=== PATIENT | female | born 1950 | race Caucasian/White ===

== ENCOUNTER 2023-10-27 10:52 | Outpatient (OUT) | payer MEDICARE, OTHER, SELFPAY ==
--- NOTE | 2023-10-27 10:55 | MM_ITS ---
Patient Name: ANASTACIA TOMLIN MR#: [id number] : 1950 Exam Date: 10/27/2023 Ordering Doctor: DR CALI YOUNGBLOOD RADIOLOGY REPORT PROCEDURE: MM TOMOSYNTHESIS SCREENING BI COMPARISON: MG MAMM SCREEN 3D THIERRY CAD, 10/07/2021. MG MAMM SCREEN 3D THIERRY CAD, 10/24/2022. INDICATIONS: screening Calculator Name NCI Breast Cancer Risk Assessment Tool 5 Year Breast Cancer Risk 1.70% Lifetime Breast Cancer Risk 4.00% Personal Breast Cancer No Personal Ovarian Cancer No Treatments None Family Cancers None LOCATION: [facility] BREAST COMPOSITION: Scattered areas fibroglandular density. FINDINGS: DIAGNOSTIC CATEGORY 2--BENIGN FINDING. NO CHANGE FROM COMPARISON. Scattered benign-appearing nodules are present. Scattered benign-appearing calcifications are present. Scattered benign-appearing lymph nodes are present. Pacemaker obscures the left axillary tail RIGHT BREAST: No significant suspicious finding. LEFT BREAST: No significant suspicious finding. RECOMMENDATIONS: ROUTINE MAMMOGRAM AND CLINICAL EVALUATION IN 12 MONTHS. PLEASE NOTE: A NORMAL MAMMOGRAM DOES NOT EXCLUDE THE POSSIBILITY OF BREAST CANCER. A CLINICALLY SUSPICIOUS PALPABLE LUMP SHOULD BE BIOPSIED. Dictated by: Nixon Orellana MD on 10/27/2023 at 12:47 Approved by: Nixon Orellana MD on 10/27/2023 at 12:48
== END 2023-10-27 10:53 | disposition home or self-care (01) ==
LOC: MAMMO 10:52
PROVIDERS: PCP Nurse Practitioner Family; Visit Provider Nurse Practitioner Family
DX: Z12.31 Encounter for screening mammogram for malignant neoplasm of breast (principal)
CPT/HCPCS: 77063; 77067

== ENCOUNTER 2024-06-07 17:23 | Emergency (ER) | payer MEDICARE, SELFPAY ==
[2024-06-07 17:38] VITALS: BP 144/70; PULSE 75; TEMP 36.6; O2SAT 100; BMI 32.3
[2024-06-07 18:44] VITALS: BP 134/105; PULSE 86; O2SAT 98
--- NOTE | 2024-06-07 19:01 | ED.BACK1 ---
Documented by User: Jordy Cool MD 06/07/24 19:03 HPI HPI - Back Pain/Injury General Chief Complaint: Back Pain/Injury Stated Complaint: BACK PAIN Time Seen by Provider: 06/07/24 18:49 Source: patient and family Mode of arrival: walk-in Limitations: no limitations History of Present Illness HPI Narrative: This is a 74 female here with her from [facility] here complaining of increasing bruising from her abdominal area over her right iliac crest in her back area. She currently does take blood thinners for valvular heart surgery and atrial fibrillation and was told she will be on blood thinners the rest of her life. Several days ago she had a fall onto concrete steps. She went to a local emergency room in [facility] where plain imaging was done and she is told there is no broken bones. She did not have any CT imaging at that time. She says that she feels increasingly weak and fatigued and has this massive amount of ecchymosis and bruising throughout her entire right flank and back area. She does not have paresis paresthesias tingling or numbness of the lower extremities there is not been any new problems or injury. She is here with her is very pleasant. Her vital signs are noted. Related Data Home Medications ?Medication ?Instructions ?Recorded ?Confirmed apixaban 5 mg tablet (Eliquis) 5 mg PO BID 06/07/24 06/07/24 atorvastatin 40 mg tablet 40 mg PO DAILY 06/07/24 06/07/24 bupropion HCl 150 mg tablet,12 hr 150 mg PO BID 06/07/24 06/07/24 sustained-release duloxetine 60 mg capsule,delayed 60 mg PO DAILY 06/07/24 06/07/24 release furosemide 40 mg tablet 40 mg PO DAILY 06/07/24 06/07/24 metformin 500 mg tablet 500 mg PO DAILY 06/07/24 06/07/24 omeprazole 20 mg capsule,delayed 20 mg PO DAILY 06/07/24 06/07/24 release sotalol 80 mg tablet 80 mg PO BID 06/07/24 06/07/24 Allergies Allergy/AdvReac Type Severity Reaction Status Date / Time bee venom protein (honey bee) Allergy Severe Hives Verified 06/07/24 17:38 Penicillins Allergy Severe Hives Verified 06/07/24 17:38 Opioid HPI Opioid Management Most Recent Opioid Data: No Data to Display [facility] Social History Little interest or pleasure in doing things: not at all Feeling down, depressed, or hopeless: not at all Exam Constitutional Vital Signs, click to edit/add: Last Vital Signs Temp 98.4 F 06/07/24 22:33 Pulse 79 06/07/24 22:33 Resp 18 06/07/24 22:33 BP 115/78 06/07/24 22:33 Pulse Ox 97 06/07/24 22:33 O2 Del Method Room Air 06/07/24 17:38 Course Vital Signs Vital signs: Vital Signs Temperature 98 F 06/07/24 17:38 Pulse Rate 75 06/07/24 17:38 Respiratory Rate 20 06/07/24 17:38 Blood Pressure 144/70 H 06/07/24 17:38 Pulse Oximetry 100 06/07/24 17:38 Oxygen Delivery Method Room Air 06/07/24 17:38 Temperature 98.4 F 06/07/24 22:33 Pulse Rate 79 06/07/24 22:33 Respiratory Rate 18 06/07/24 22:33 Blood Pressure 115/78 06/07/24 22:33 Pulse Oximetry 97 06/07/24 22:33 Oxygen Delivery Method Room Air 06/07/24 17:38 MDM - Back Pain/Injury Lab Data Labs: Lab Results 06/07/24 Range/Units 19:10 WBC 5.0 (4.0-11.0) 10^3/uL RBC 2.60 L (4.20-5.40) 10^6/uL Hgb 7.6 L (12.0-16.0) g/dL Hct 24.2 L (36.0-48.0) % MCV 93.1 (81.0-99.0) fL MCH 29.2 (26.7-34.0) pg MCHC 31.4 (29.9-35.2) g/dL RDW 14.7 (11.0-15.0) % Plt Count 144 L (150-450) 10^3/uL MPV 9.8 (9.5-13.5) fL Neut % (Auto) 63.4 (43.0-75.0) % Lymph % (Auto) 21.2 (20.5-60.0) % [place] % (Auto) 11.2 (1.7-12.0) % Eos % (Auto) 3.0 (0.9-7.0) % Baso % (Auto) 0.8 (0.2-2.0) % Neut # (Auto) 3.2 (1.4-6.5) 10^3/uL Lymph # (Auto) 1.1 L (1.2-3.8) 10^3/uL [place] # (Auto) 0.6 (0.3-0.8) 10^3/uL Eos # (Auto) 0.2 (0.0-0.7) 10^3/uL Baso # (Auto) 0.0 (0.0-0.1) 10^3/uL Abs Immat Gran (auto) 0.02 (0.00-0.03) 10^3/uL Imm/Tot Granulo (auto) 0.4 (0.0-0.5) % Sodium 141 (136-145) mmol/L Potassium 3.9 (3.5-5.1) mmol/L Chloride 102 (98-107) mmol/L Carbon Dioxide 31.2 (21.0-32.0) mmol/L Anion Gap 11.7 BUN 20.0 H (7.0-18.0) mg/dL Creatinine 0.73 (0.55-1.02) mg/dL Est GFR ( Amer) >60 (>=60 mL/min/1.73m^2) Est GFR (Non-Af Amer) >60 (>=60 mL/min/1.73m^2) BUN/Creatinine Ratio 27.4 Glucose 145 H (74-106) mg/dL Calcium 9.0 (8.5-10.1) mg/dL Total Bilirubin 1.7 H (0.2-1.0) mg/dL AST 25 (15-37) U/L ALT 27 (14-59) U/L Alkaline Phosphatase 60 (46-116) U/L Total Protein 6.4 (6.4-8.2) g/dL Albumin 3.0 L (3.4-5.0) g/dL Globulin 3.4 g/dL Albumin/Globulin Ratio 0.9 Discharge Plan Discharge Chief Complaint: Back Pain/Injury Clinical Impression: Lumbar transverse process fracture, Anemia, Hematoma of right flank Patient Disposition: Home, Self-Care Prescriptions / Home Meds: No Action Eliquis 5 mg tablet 5 mg PO BID atorvastatin 40 mg tablet 40 mg PO DAILY bupropion HCl 150 mg tablet sustained-release 12 hr 150 mg PO BID duloxetine 60 mg capsule,delayed release(DR/EC) 60 mg PO DAILY furosemide 40 mg tablet 40 mg PO DAILY metformin 500 mg tablet 500 mg PO DAILY omeprazole 20 mg capsule,delayed release(DR/EC) 20 mg PO DAILY sotalol 80 mg tablet 80 mg PO BID Print Language: Belgian Instructions: Anemia (ED), Hematoma (ED), Transverse Process Fracture (ED) Additional Instructions: have your blood count recheck tomorrow as discussed Referrals: DAVID STEWART [Primary Care Provider] - 1 week Discharge Date/Time: 06/07/24 22:45 Documented by User: Hay Duval MD 06/08/24 20:54 HPI HPI - Back Pain/Injury General Chief Complaint: Back Pain/Injury Stated Complaint: BACK PAIN Time Seen by Provider: 06/07/24 18:49 Related Data Home Medications ?Medication ?Instructions ?Recorded ?Confirmed apixaban 5 mg tablet (Eliquis) 5 mg PO BID 06/07/24 06/07/24 atorvastatin 40 mg tablet 40 mg PO DAILY 06/07/24 06/07/24 bupropion HCl 150 mg tablet,12 hr 150 mg PO BID 06/07/24 06/07/24 sustained-release duloxetine 60 mg capsule,delayed 60 mg PO DAILY 06/07/24 06/07/24 release furosemide 40 mg tablet 40 mg PO DAILY 06/07/24 06/07/24 metformin 500 mg tablet 500 mg PO DAILY 06/07/24 06/07/24 omeprazole 20 mg capsule,delayed 20 mg PO DAILY 06/07/24 06/07/24 release sotalol 80 mg tablet 80 mg PO BID 06/07/24 06/07/24 Allergies Allergy/AdvReac Type Severity Reaction Status Date / Time bee venom protein (honey bee) Allergy Severe Hives Verified 06/07/24 17:38 Penicillins Allergy Severe Hives Verified 06/07/24 17:38 Opioid HPI Opioid Management Most Recent Opioid Data: No Data to Display PFSH PFSH Social History Little interest or pleasure in doing things: not at all Feeling down, depressed, or hopeless: not at all Exam Constitutional Vital Signs, click to edit/add: Last Vital Signs Temp 98.4 F 06/07/24 22:33 Pulse 79 06/07/24 22:33 Resp 18 06/07/24 22:33 BP 115/78 06/07/24 22:33 Pulse Ox 97 06/07/24 22:33 O2 Del Method Room Air 06/07/24 17:38 Course Vital Signs Vital signs: Vital Signs Temperature 98 F 06/07/24 17:38 Pulse Rate 75 06/07/24 17:38 Respiratory Rate 20 06/07/24 17:38 Blood Pressure 144/70 H 06/07/24 17:38 Pulse Oximetry 100 06/07/24 17:38 Oxygen Delivery Method Room Air 06/07/24 17:38 Temperature 98.4 F 06/07/24 22:33 Pulse Rate 79 06/07/24 22:33 Respiratory Rate 18 06/07/24 22:33 Blood Pressure 115/78 06/07/24 22:33 Pulse Oximetry 97 06/07/24 22:33 Oxygen Delivery Method Room Air 06/07/24 17:38 MDM - Back Pain/Injury MDM Narrative Medical decision making narrative: care transferred at change of shift. Patient fell 06/01/24 striking her back. Developed immediate right flank hematoma. Next day seen at local ER and reported xrays as neg and was discharged home. Presented here due to continued pain. Diagnostic studies ordered at change of shift. CT returned with findings of transverse process lumbar fractures and large hematoma. 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 Discussed with weatherization operations manager Surgeon Dr Herrera and he agrees that since this injury occurred last week she is probably not actively bleeding. Patient informed of the plan of close followup and to have her CBC rechecked tomorrow. She can continue her Eliquis for A. Fib for now both patient and her acknowledged understanding of the plan Lab Data Labs: Lab Results 06/07/24 Range/Units 19:10 WBC 5.0 (4.0-11.0) 10^3/uL RBC 2.60 L (4.20-5.40) 10^6/uL Hgb 7.6 L (12.0-16.0) g/dL Hct 24.2 L (36.0-48.0) % MCV 93.1 (81.0-99.0) fL MCH 29.2 (26.7-34.0) pg MCHC 31.4 (29.9-35.2) g/dL RDW 14.7 (11.0-15.0) % Plt Count 144 L (150-450) 10^3/uL MPV 9.8 (9.5-13.5) fL Neut % (Auto) 63.4 (43.0-75.0) % Lymph % (Auto) 21.2 (20.5-60.0) % [place] % (Auto) 11.2 (1.7-12.0) % Eos % (Auto) 3.0 (0.9-7.0) % Baso % (Auto) 0.8 (0.2-2.0) % Neut # (Auto) 3.2 (1.4-6.5) 10^3/uL Lymph # (Auto) 1.1 L (1.2-3.8) 10^3/uL [place] # (Auto) 0.6 (0.3-0.8) 10^3/uL Eos # (Auto) 0.2 (0.0-0.7) 10^3/uL Baso # (Auto) 0.0 (0.0-0.1) 10^3/uL Abs Immat Gran (auto) 0.02 (0.00-0.03) 10^3/uL Imm/Tot Granulo (auto) 0.4 (0.0-0.5) % Sodium 141 (136-145) mmol/L Potassium 3.9 (3.5-5.1) mmol/L Chloride 102 (98-107) mmol/L Carbon Dioxide 31.2 (21.0-32.0) mmol/L Anion Gap 11.7 BUN 20.0 H (7.0-18.0) mg/dL Creatinine 0.73 (0.55-1.02) mg/dL Est GFR ( Amer) >60 (>=60 mL/min/1.73m^2) Est GFR (Non-Af Amer) >60 (>=60 mL/min/1.73m^2) BUN/Creatinine Ratio 27.4 Glucose 145 H (74-106) mg/dL Calcium 9.0 (8.5-10.1) mg/dL Total Bilirubin 1.7 H (0.2-1.0) mg/dL AST 25 (15-37) U/L ALT 27 (14-59) U/L Alkaline Phosphatase 60 (46-116) U/L Total Protein 6.4 (6.4-8.2) g/dL Albumin 3.0 L (3.4-5.0) g/dL Globulin 3.4 g/dL Albumin/Globulin Ratio 0.9 Discharge Plan Discharge Chief Complaint: Back Pain/Injury Clinical Impression: Lumbar transverse process fracture, Anemia, Hematoma of right flank Patient Disposition: Home, Self-Care Prescriptions / Home Meds: No Action Eliquis 5 mg tablet 5 mg PO BID atorvastatin 40 mg tablet 40 mg PO DAILY bupropion HCl 150 mg tablet sustained-release 12 hr 150 mg PO BID duloxetine 60 mg capsule,delayed release(DR/EC) 60 mg PO DAILY furosemide 40 mg tablet 40 mg PO DAILY metformin 500 mg tablet 500 mg PO DAILY omeprazole 20 mg capsule,delayed release(DR/EC) 20 mg PO DAILY sotalol 80 mg tablet 80 mg PO BID Print Language: Belgian Instructions: Anemia (ED), Hematoma (ED), Transverse Process Fracture (ED) Additional Instructions: have your blood count recheck tomorrow as discussed Referrals: DAVID STEWART [Primary Care Provider] - 1 week Discharge Date/Time: 06/07/24 22:45
--- NOTE | 2024-06-07 19:02 | CT_ITS ---
The [address] [address] Patient Name: ANASTACIA TOMLIN MRN: [id number] date: 1950 Sex: F Assigned Patient Location: ER Current Patient Location: ER Accession/Order Number: [id number] Exam Date: 06/07/2024 19:41 Report Date: 06/07/2024 21:39 At the request of: VIOLETA COLORADO Procedure: CT abdomen pelvis w con Indication: Fall with large hematoma in right flank. Comparison: CT chest of 02/18/2016 was reviewed Procedure: Axial images were made from the diaphragms through the symphysis pubis. No oral contrast was given prior to scanning. 100 mL Omnipaque 300 Intravenous contrast was given. Dose reduction techniques were achieved by using automated exposure control and/or adjustment of mA and/or kV according to patient size and/or use of iterative reconstruction technique. Findings: Liver/Biliary System: No liver injuries are seen. No liver masses . No intra or extrahepatic biliary dilatation. No gallstones or cholecystitis. Pancreas/Spleen: No splenic or pancreatic injuries. No acute pancreatitis. Pancreatic duct is not dilated. No splenomegaly or splenic lesions. Kidneys/Adrenals: Normal symmetrical nephrograms. No renal injuries are seen. No renal or ureteral stones are seen. No hydronephrosis or hydroureter bilaterally. No renal masses. No adrenal nodules. Aorta/Vessels: No vascular injuries. No evidence of aortic aneurysm. Patent IVC, hepatic veins, renal veins and portal venous system. Bowel/Fluid/Nodes: No bowel injuries. No bowel dilatation or bowel wall thickening. No evidence of bowel obstruction. Small anterior abdominal wall hernia containing small bowel loop. Colonic diverticulosis with no evidence of diverticulitis. No intra-abdominal hematomas. No ascites or fluid collections. No adenopathy. Lung bases: Stable 3 mm pleural-based nodule right middle lobe of the lung, probably benign. No acute consolidation. No pleural effusions. Other findings: Partially visualized subcutaneous hematoma in right flank is seen measuring about 7.0 x 4.3 x 6.2 cm. No fractures are seen. No aggressive osseous lesions are seen. Pelvis: No pelvic masses or adenopathy. No free fluid seen in the pelvis. Bladder, uterus and adnexa are unremarkable. Other Findings: No fractures are seen. No aggressive osseous lesions are seen. CT/CT abdomen pelvis w con Impression: 1. Partially visualized subcutaneous hematoma in right flank measuring about 7.0 x 4.3 x 6.2 cm. Follow-up is recommended. 2. No organ injuries are seen in abdomen or pelvis. No fractures are seen. 3. Small anterior abdominal wall hernia containing small bowel loop. No bowel obstruction. Colonic diverticulosis with no evidence of diverticulitis. Electronically authenticated by: JACKIE CASTELLANOS Date: 06/07/2024 21:39
--- NOTE | 2024-06-07 19:03 | CT_ITS ---
The [address] [address] Patient Name: ANASTACIA TOMLIN MRN: [id number] date: 1950 Sex: F Assigned Patient Location: ER Current Patient Location: ER Accession/Order Number: [id number] Exam Date: 06/07/2024 19:41 Report Date: 06/07/2024 21:50 At the request of: VIOLETA COLORADO Procedure: CT lumbar spine wo con CT LUMBAR SPINE WITHOUT CONTRAST. HISTORY: Trauma COMPARISON: None. TECHNIQUE: CT of the lumbar spine without contrast. Sagittal and coronal reformatted images created. FINDINGS: BONY ALIGNMENT: There is normal lumbar lordosis. No spondylolisthesis. VERTEBRAL BODY: No acute fracture of the lumbar vertebral bodies. There are minimally displaced fractures of the right L2-L4 transverse processes. Intervertebral disc spaces are intact. CENTRAL CANAL/NEURAL FORAMINA: No high-grade central canal or neuroforaminal stenosis. SOFT TISSUE: No mass or inflammation. VISUALIZED ABDOMEN/PELVIS: No acute findings. CT/CT lumbar spine wo con IMPRESSION: 1. Acute appearing minimally displaced fractures of the right L2-L4 transverse processes. Correlate clinically. 2. No acute fracture of the lumbar vertebral bodies. Electronically authenticated by: REGINALD ESTRADA Date: 06/07/2024 21:50
--- NOTE | 2024-06-07 19:04 | CT_ITS ---
The [address] [address] Patient Name: ANASTACIA TOMLIN MRN: [id number] date: 1950 Sex: F Assigned Patient Location: ER Current Patient Location: ER Accession/Order Number: [id number] Exam Date: 06/07/2024 19:41 Report Date: 06/07/2024 21:50 At the request of: VIOLETA COLORADO Procedure: CT hip RT wo con EXAM: CT hip RT wo con HISTORY: The patient is a 74-year-old female, Trauma COMPARISON: None. TECHNIQUE: CT images were obtained through the right hip only without intravenous contrast and reformatted in 2 dimensions. Dose reduction techniques were achieved by using automated exposure control and/or adjustment of mA and/or kV according to patient size and/or use of iterative reconstruction technique. FINDINGS: The bone images demonstrate no fractures or cortical discontinuities of the proximal right femur and acetabulum. There is moderate osteoarthritic cartilage loss throughout the right hip joint. No osteophytes or other secondary findings of osteoarthritis are seen. The soft tissue images demonstrate no evidence of abnormal fluid collections within or around the right hip on this non-contrast enhanced study. CT/CT hip RT wo con IMPRESSION: 1. No fracture dislocation of the right hip. 2. Osteoarthritis of the right hip. Electronically authenticated by: CANDE PATEL Date: 06/07/2024 21:50
[2024-06-07 19:17] LABS: Basophils Percent Auto 0.8 % (0.2-2.0); Eosinophils Absolute Auto 0.2 10^3/uL (0.0-0.7); Hematocrit 24.2 % (36.0-48.0); Hemoglobin 7.6 g/dL (12.0-16.0); Immature Granulocytes Abs Auto 0.02 10^3/uL (0.00-0.03); Immature Granulocytes Pct Auto 0.4 % (0.0-0.5); Lymphocytes Absolute Auto 1.1 10^3/uL (1.2-3.8); Lymphocytes Percent Auto 21.2 % (20.5-60.0); Mean Corpuscular HGB Conc 31.4 g/dL (29.9-35.2); Mean Corpuscular Hemoglobin 29.2 pg (26.7-34.0); Mean Corpuscular Volume 93.1 fL (81.0-99.0); Mean Platelet Volume 9.8 fL (9.5-13.5); Monocytes Absolute Auto 0.6 10^3/uL (0.3-0.8); Monocytes Percent Auto 11.2 % (1.7-12.0); Neutrophils Absolute Auto 3.2 10^3/uL (1.4-6.5); Neutrophils Percent Auto 63.4 % (43.0-75.0); Platelet Count 144 10^3/uL (150-450); Red Cell Distribution Width 14.7 % (11.0-15.0)
[2024-06-07 19:32] LABS: Alanine Aminotransferase 27 U/L (14-59); Albumin Globulin Ratio 0.9; Alkaline Phosphatase 60 U/L (46-116); Anion Gap 11.7; Aspartate Amino Transferase 25 U/L (15-37); BUN Creatinine Ratio 27.4; Bilirubin Total 1.7 mg/dL (0.2-1.0); Carbon Dioxide 31.2 mmol/L (21.0-32.0); Chloride 102 mmol/L (98-107); Estimated GFR (African America >60 (>=60 mL/min/1.73m^2); Estimated GFR (Non-African Ame >60 (>=60 mL/min/1.73m^2); Globulin 3.4 g/dL; Glucose 145 mg/dL (74-106); Potassium 3.9 mmol/L (3.5-5.1); Sodium 141 mmol/L (136-145); Total Protein 6.4 g/dL (6.4-8.2)
[2024-06-07 20:25] VITALS: BP 120/70; PULSE 87; O2SAT 98
[2024-06-07 21:34] VITALS: BP 125/85; PULSE 92; O2SAT 96
[2024-06-07 22:33] VITALS: BP 115/78; PULSE 79; TEMP 36.9; O2SAT 97
== END 2024-06-07 22:45 | disposition home or self-care (01) ==
PROVIDERS: Emergency Medicine Emergency Medical Services; Emergency Provider Internal Medicine; PCP Nurse Practitioner
DX: S32.029A Unspecified fracture of second lumbar vertebra, initial encounter for closed fracture (principal); S32.039A Unspecified fracture of third lumbar vertebra, initial encounter for closed fracture; S32.049A Unspecified fracture of fourth lumbar vertebra, initial encounter for closed fracture; S30.1XXA Contusion of abdominal wall, initial encounter; D64.9 Anemia, unspecified; W19.XXXA Unspecified fall, initial encounter; I48.91 Unspecified atrial fibrillation; Z79.01 Long term (current) use of anticoagulants
CPT/HCPCS: 36415; 72131; 73700; 74177; 80053; 85025; 99285; Q9967

== ENCOUNTER 2024-10-27 11:28 | Outpatient (OUT) | payer MEDICARE, SELFPAY ==
--- NOTE | 2024-10-27 11:30 | MM_ITS ---
Patient Name: ANASTACIA TOMLIN MR#: [id number] : 1950 Exam Date: 10/27/2024 Ordering Doctor: DAVID STEWART RADIOLOGY REPORT PROCEDURE: MM TOMOSYNTHESIS SCREENING BI COMPARISON: MM TOMOSYNTHESIS SCREENING BI, 10/27/2023. MG MAMM SCREEN 3D THIERRY CAD, 10/24/2022. MG MAMM SCREEN 3D THIERRY CAD, 10/07/2021. MG MAMM THIERRY SCRN W CAD DIG, 12/26/2014. INDICATIONS: Screening Calculator Name NCI Breast Cancer Risk Assessment Tool 5 Year Breast Cancer Risk 1.70% Lifetime Breast Cancer Risk 3.80% Personal Breast Cancer No Personal Ovarian Cancer No Treatments None Family Cancers None LOCATION: [facility] BREAST COMPOSITION: There are scattered areas of fibroglandular density. FINDINGS: DIAGNOSTIC CATEGORY 1--NEGATIVE. RIGHT BREAST: No significant suspicious finding. LEFT BREAST: No significant suspicious finding. RECOMMENDATIONS: ROUTINE MAMMOGRAM AND CLINICAL EVALUATION IN 12 MONTHS. PLEASE NOTE: A NORMAL MAMMOGRAM DOES NOT EXCLUDE THE POSSIBILITY OF BREAST CANCER. A CLINICALLY SUSPICIOUS PALPABLE LUMP SHOULD BE BIOPSIED. Dictated by: Irvin Jenkins DO on 10/27/2024 at 16:31 Approved by: Irvin Jenkins DO on 10/27/2024 at 16:33
--- OUTSIDE RECORDS SUMMARY | 2024-10-27 11:34 | XMS_ITS | CCD ---
Author Organization [facility] CliniSypr Care Team Providers Care Sports Statistician Name Role Phone RYLIE, DR CALI Dudley Admitting Unavailable KUNS, DR CALI Dudley Attending Unavailable ZIEBER, DR YASMIN Dudley Consulting Unavailable KUNS, DR CALI Dudley Consulting Unavailable RUSHER, BOB Watkins Attending Unavailable RUSHER, BOB Watkins Attending Unavailable RUSHER, BOB Watkins Attending Unavailable RUSHER, BOB Watkins Attending Unavailable RUSHER, BOB Watkins Attending Unavailable RUSHER, BOB Watkins Attending Unavailable RUSHER, BOB Watkins Referring Unavailable KUNJune, CALI GIRON Attending Unavailable CHRISSY ENNIS Referring Unavailable KUNS, CALI GIRON Primary Care Unavailable KAREN LU Attending Unavailable CALI YOUNGBLOOD Referring Unavailable KUNS, LEWIS Primary Care Unavailable DAVID HAYES Attending Unavailable CALI YOUNGBLOOD Referring Unavailable HAYES, DAVID Ulloa Primary Care Unavailable DAVID HAYES Attending Unavailable CALI YOUNGBLOOD Referring Unavailable HAYESDAVID ROBERSON Primary Care Unavailable CHRISSY ENNIS Referring Unavailable HAYES, DAVID Ulloa Primary Care Unavailable HAYESDAVID ROBERSON Attending Unavailable HAYESDAVID ROBERSON Attending Unavailable HAYESDAVID ROBERSON Referring Unavailable HAYESDAVID Primary Care Unavailable DEVIKA VALDIVIA Attending Unavailable CHRISSY ENNIS Referring Unavailable HAYESDAVID Primary Care Unavailable HAYESDAVID ROBERSON Attending Unavailable HAYESDAVID ROBERSON Referring Unavailable HAYESDAVID Primary Care Unavailable KUNS, CALI R Referring Unavailable KUNS, CALI R Primary Care Unavailable LISBET RYAN Admitting Unavailable LISBET RYAN Attending Unavailable CHRISSY ENNIS Primary Care Unavailable MADYSON NICKERSON Referring Unavailable KUNS, CALI R Primary Care Unavailable ERNA SKY Attending Unavailab le CHRISSY ENNIS Referring Unavailable KUNS, CALI R Primary Care Unavailable HAYESDAVID Referring Unavailable DAVID HAYES Primary Care Unavailable DAVID HAYES Referring Unavailable HAYESDAVID ROBERSON Primary Care Unavailable FARRAH LAND Attending Unavailable LUBA JUÁREZ Referring Unavailab CHRISSY Faye Primary Care Unavailable FARRAH LAND Admitting Unavailable FARRAH LAND Attending Unavailable KUNS, CALI Dudley Primary Care Unavailable MADYSON NICKERSON Referring Unavailable KUNS, CALI Dudley Primary Care Unavailable LAN LEYVA Attending Unavailable KUNS, CALI Dudley Primary Care Unavailable MADYSON NICKERSON Attending Unavailable LUBA JUÁREZ Referring Unavailab le KUNS, CALI Dudley Primary Care Unavailable Hayes CIVIL ENGINEERING PROFESSIONAL-PROFESSOR OF THEOLOGY, David Ulloa Primary Care Provid er FARRAH LAND Referring Unavailable [facility] Primary Care Unavailable FARRAH LAND Referring Unavailable [facility] Primary Care Unavailable SERVICE, JOBST Referring Unavailable [facility] Primary Care Unavailable MADYSON NICKERSON Referring Unavailable [facility] Primary Care Unavailable FARRAH LAND Referring Unavailable [facility] Primary Care Unavailable FARRAH LAND Referring Unavailable [facility] Primary Care Unavailable FARRAH LAND Referring Unavailable [facility] Primary Care Unavailable QUIQUE TOLENTINO Attending Unavailable [facility] Referring Unavailable [facility] Primary Care Unavailable FARRAH LAND Referring Unavailable [facility] Primary Care Unavailable SERVICE, JOBST Referring Unavailable [facility] Primary Care Unavailable FARRAH LAND Referring Unavailable [facility] Primary Care Unavailable FARRAH LAND Referring Unavailable [facility] Primary Care Unavailable [facility] Referring Unavailable [facility] Primary Care Unavailable FARRAH LAND Referring Unavailable [facility] Primary Care Unavailable SERVICE, JOBST Referring Unavailable [facility] Primary Care Unavailable FARRAH LAND Referring Unavailable [facility] Primary Care Unavailable FARRAH LAND Referring Unavailable [facility] Primary Care Unavailable FARRAH LAND Referring Unavailable [facility] Primary Care Unavailable SERVICE, JOBST Referring Unavailable [facility] Primary Care Unavailable YOUNES, FARRAH C Referring Unavailable [facility] Care Unavailable YOUNKALIE, FARRAH C Referring Unavailable [facility] Primary Care Unavailable YOUNKALIE, FARRAH C Referring Unavailable [facility] Care Unavailable SERVICE, JOBST Referring Unavailable [facility] Care Unavailable [facility], [facility] Referring Unavailable [facility] Care Unavailable YOUNKALIE, FARRAH C Referring Unavailable [facility] Primary Care Unavailable YOUNKALIE, FARRAH C Referring Unavailable [facility] Primary Care Unavailable YOUNKALIE, FARRAH C Referring Unavailable [facility] Primary Care Unavailable YOUNKALIE, FARRAH C Referring Unavailable [facility] Primary Care Unavailable YOUNES, FARRAH C Referring Unavailable [facility] Primary Care Unavailable SERVICE, JOBST Referring Unavailable [facility] Care Unavailable YOUNKALIE, FARRAH C Referring Unavailable [facility] Care Unavailable YOUNKALIE, FARRAH C Referring Unavailable [facility] Care Unavailable YOUNKALIE, FARRAH C Referring Unavailable [facility] Care Unavailable YOUNKALIE, FARRAH C Referring Unavailable [facility] Care Unavailable YOUNKALIE, FARRAH C Referring Unavailable [facility] Care Unavailable YOUNKALIE, FARRAH C Referring Unavailable [facility] Care Unavailable YOUNKALIE, FARRAH C Referring Unavailable [facility] Care Unavailable EMERY FARRAH C Referring Unavailable [facility] Care Unavailable QUIQUE TOLENTINO Attending Unavailable [facility] Referring Unavailable [facility] Care Unavailable QUIQUE TOLENTINO Attending Unavailable QUIQUE TOLENTINO Referring Unavailable [facility] Primary Care Unavailable YOUNKALIE FARRAH C Referring Unavailable [facility] Primary Care Unavailable HAYES, DAVID J Primary Care Unavailable HAYES, DAVID J Referring Unavailable HAYES, DAVID J Primary Care Unavailable MADYSON NICKERSON Referring Unavailable HAYES, DAVID J Primary Care Unavailable HAYES, DAVID J Referring Unavailable HAYES, DAVID J Primary Care Unavailable JOIE GUZMAN Attending Unavailable HAYES, DAVID J Referring Unavailable HAYES, DAVID J Primary Care Unavailable ANNA MONTES Referring Unavailable HAYES, DAVID J Primary Care Unavailable Allergies Allergy Classification Reported Allergen(s) Allergy Type Date of Onset Reaction(s) Facility (12 sources) Penicillins; Translations: [PENICILLINS] Propensity to adverse reactions to drug (disorder) 6 Hives [facility] (12 sources) BEE VENOM PROTEIN (HONEY BEE); Translations: [BEE VENOM PROTEIN (HONEY BEE)] Propensity to adverse reactions to drug (disorder) Angioedema [facility] Medications Current Medications Medication Drug Class(es) Dates Sig (Normalized) Sig (Original) 8 hr acetaminophen 650 mg extended release oral tablet (9 sources) take 1 tablet by mouth every eight hours as needed for pain acetaminophen (TYLENOL ARTHRITIS) 650 mg 8 hr tablet Take 1 tablet (650 mg total) by mouth every 8 (eight) hours as needed for pain. Active apixaban 5 mg oral tablet (10 sources) Factor Xa Inhibitor Start: 12-17-2023 End: 10-24-2024 take 1 tablet by mouth in the morning, then take 1 tablet by mouth at bedtime apixaban (ELIQUIS) 5 mg tablet Indications: Paroxysmal atrial fibrillation (CMS-HCC) Take 1 tablet (5 mg total) by mouth in the morning and 1 tablet (5 mg total) before bedtime. 180 tablet 3 10/24/2024 Active atorvastatin 40 mg oral tablet (9 sources) HMG-CoA Reductase Inhibitor Start: 01-26-2024 take 1 tablet by mouth in the morning atorvastatin (LIPITOR) 40 mg tablet Indications: Mixed hyperlipidemia Take 1 tablet (40 mg total) by mouth in the morning. 90 tablet 3 01/26/2024 Active 12 hr buPROPion hydrochloride 150 mg extended release oral tablet (10 sources) Aminoketone Start: 10-24-2024 take 1 tablet by mouth every twelve hours in the morning buPROPion SR (WELLBUTRIN SR) 150 mg 12 hr tablet Indications: Depressive disorder TAKE 1 TABLET BY MOUTH IN THE MORNING AND 1 TABLET BEFORE BEDTIME 180 tablet 3 10/24/2024 Active Start: 01-26-2024 End: 10-24-2024 take 1 tablet by mouth every twelve hours in the morning, then take 1 tablet by mouth at bedtime, then take 1 tablet by mouth in the morning, then take 1 tablet by mouth at bedtime buPROPion SR (WELLBUTRIN SR) 150 mg 12 hr tablet Indications: Depressive disorder Take 1 tablet (150 mg total) by mouth in the morning and 1 tablet (150 mg total) before bedtime. TAKE 1 TABLET BY MOUTH IN THE MORNING AND 1 TABLET BEFORE BEDTIME. 180 tablet 2 01/26/2024 10/24/2024 Discontinued chondroitin sulfates 200 mg / glucosamine hydrochloride 250 mg oral tablet (9 sources) Start: 04-21-2023 take 2 tablets by mouth in the morning glucosamine-chondroitin 250-200 mg tablet Take 2 tablets by mouth in the morning. 180 each 3 04/21/2023 Active DULoxetine 60 mg delayed release oral capsule (9 sources) Serotonin and Norepinephrine Reuptake Inhibitor Start: 01-26-2024 take 1 capsule by mouth in the morning DULoxetine (CYMBALTA) 60 mg capsule Indications: Depressive disorder Take 1 capsule (60 mg total) by mouth in the morning. 90 capsule 2 01/26/2024 Active [id number] 0.3 ml EPINEPHrine 1 mg/ml auto-injector (9 sources) alpha-Adrenergic Agonist, beta-Adrenergic Agonist, Catecholamine Start: 04-21-2023 EPINEPHrine (EPIPEN) 0.3 mg/0.3 mL auto-injector Indications: Allergic reaction to bee sting Inject 0.3 mL (0.3 mg total) into the appropriate muscle as needed (for bee sting). 2 each 1 04/21/2023 Active ferrous sulfate 325 mg oral tablet (9 sources) take 1 tablet by mouth in the morning, then take 1 tablet by mouth at mealtime ferrous sulfate 325 (65 FE) mg tablet Take 1 tablet (325 mg total) by mouth in the morning and 1 tablet (325 mg total) in the evening. Take with meals. Active furosemide 40 mg oral tablet (11 sources) Loop Diuretic Start: 09-24-2023 End: 10-20-2024 take 1 tablet by mouth once daily furosemide (LASIX) 40 mg tablet Indications: Primary hypertension , Chronic combined systolic and diastolic heart failure (CMS-HCC) TAKE 1 TABLET BY MOUTH DAILY 90 tablet 3 10/20/2024 Active metFORMIN hydrochloride 500 mg oral tablet (9 sources) Biguanide Start: 01-26-2024 take 1 tablet by mouth once daily at breakfast metFORMIN (GLUCOPHAGE) 500 mg tablet Indications: Type 2 diabetes mellitus without complication, without long-term current use of insulin (CMS-HCC) Take 1 tablet (500 mg total) by mouth daily with breakfast. 90 tablet 2 01/26/2024 Active multivitamin capsule (9 sources) Start: 07-22-2015 take 1 capsule by mouth in the morning multivitamin capsule Take 1 capsule by mouth in the morning. 07/22/2015 Active omeprazole 20 mg delayed release oral capsule (9 sources) Proton Pump Inhibitor Start: 01-26-2024 take 1 capsule by mouth in the morning omeprazole (PriLOSEC) 20 mg capsule Indications: GERD without esophagitis TAKE 1 CAPSULE BY MOUTH IN THE MORNING Strength: 20 mg 90 capsule 3 01/26/2024 Active potassium chloride 10 meq extended release oral tablet (9 sources) Start: 01-26-2024 potassium chloride (K-TAB,KLOR-CON) 10 MEQ CR tablet Indications: Chronic combined systolic and diastolic heart failure (CMS-HCC) Take 1 tablet (10 mEq total) by mouth in the morning. 90 tablet 2 01/26/2024 Active sotalol hydrochloride 80 mg oral tablet (9 sources) Antiarrhythmic Start: 12-17-2023 take 1 tablet by mouth once sotaloL (BETAPACE) 80 mg tablet Indications: Paroxysmal atrial fibrillation (CMS-HCC) , Encounter for monitoring sotalol therapy Take 1 tablet (80 mg total) by mouth every 12 (twelve) hours. 180 tablet 3 12/17/2023 Active Problems Active Problems Problem Classification Problem Date Documented Da te Episodic/Chronic Cardiac dysrhythmias (20 sources) Paroxysmal atrial fibrillation; Translations: [Atypical atrial flutter] Onset: 07-21-2016 Resolved: 09-09-2023 12-17-2023 Chronic Chronic obstructive pulmonary disease and bronchiectasis (19 sources) Chronic obstructive pulmonary disease, unspecified; Translations: [Chronic obstructive lung disease] Onset: 02-12-2017 02-12-2017 Chronic Coagulation and hemorrhagic disorders (11 sources) Thrombocytopenia, unspecified; Translations: [Thrombocytopenic disorder] Onset: 09-16-2023 01-26-2024 Chronic Conduction disorders (13 sources) Cardiac pacemaker in situ; Translations: [Presence of cardiac pacemaker] Onset: 09-21-2017 09-21-2017 Chronic Congestive heart failure; nonhypertensive (20 sources) Chronic combined systolic (congestive) and diastolic (congestive) heart failure; Translations: [Chronic combined systolic and diastolic heart failure] Onset: 07-09-2016 Resolved: 09-23-2017 08-04-2024 Chronic Diabetes mellitus without complication (20 sources) Type 2 diabetes mellitus without complications; Translations: [Diabetes mellitus] Onset: 07-07-2022 Resolved: 05-13-2023 07-07-2022 Chronic Disorders of lipid metabolism (20 sources) Mixed hyperlipidemia; Translations: [Hyperlipidemia] Onset: 03-09-2017 03-09-2017 Chronic E Codes: Fall (1 source) Fall Onset: 06-02-2024 Esophageal disorders (1 source) Gastro-esophageal reflux disease without esophagitis; Translations: [Gastro-esophageal reflux disease without esophagitis] Onset: 01-26-2024 Chronic Essential hypertension (12 sources) Essential hypertension; Translations: [Essential (primary) hypertension] Onset: 07-07-2022 08-04-2024 Chronic Heart valve disorders (20 sources) Presence of xenogenic heart valve; Translations: [Presence of prosthetic heart valve] Onset: 07-09-2016 Resolved: 09-23-2017 07-09-2016 Chronic Mood disorders (10 sources) Depressive disorder; Translations: [Depressive disorder] Onset: 07-07-2022 07-07-2022 Chronic Nutritional deficiencies (2 sources) Vitamin D deficiency, unspecified; Translations: [Vitamin D deficiency, unspecified] Onset: 03-30-2024 Chronic Osteoarthritis (9 sources) Arthritis; Translations: [Unspecified osteoarthritis, unspecified site] Onset: 07-07-2022 07-07-2022 Chronic Other nutritional; endocrine; and metabolic disorders (9 sources) Body mass index 30+ - obesity; Translations: [Obesity, unspecified] Onset: 11-21-2020 01-28-2021 Chronic Other screening for suspected conditions (not mental disorders or infectious disease) (4 sources) Encounter for screening mammogram for malignant neoplasm of breast; Translations: [ENC SCR MAMMO MALIG NEOPLASM BREAST] Onset: 10-24-2022 Episodic Residual codes; unclassified (1 source) Sleep apnea Onset: 04-13-2024 Chronic Residual codes; unclassified (1 source) Obstructive sleep apnea (adult) (pediatric); Translations: [Obstructive sleep apnea (adult) (pediatric)] Onset: 02-12-2017 Chronic Residual codes; unclassified (9 sources) Obstructive sleep apnea syndrome; Translations: [Obstructive sleep apnea (adult) (pediatric)] Onset: 02-12-2017 02-12-2017 Chronic Unclassified (1 source) Leg Injury Onset: 01-26-2024 Unclassified (1 source) cut on leg 3 week ago fall Onset: 01-19-2024 Unclassified (1 source) Medication Problem Onset: 08-31-2023 Unclassified (1 source) New Patient Onset: 07-27-2023 Unclassified (1 source) Cardiac Valve Problem Onset: 07-27-2023 Unclassified (1 source) Device Check Onset: 10-19-2024 Unclassified (1 source) Finger Pain Onset: 06-02-2024 Past or Other Problems Problem Classification Problem Date Documented Date Episodic/Chronic Conditions associated with dizziness or vertigo (1 source) Dizziness Onset: 07-27-2023 Episodic Deficiency and other anemia (2 sources) Other iron deficiency anemias; Translations: [Other iron deficiency anemias] Onset: 07-07-2022 Episodic Deficiency and other anemia (9 sources) Anemia; Translations: [Anemia, unspecified] Onset: 07-07-2022 07-07-2022 Episodic E Codes: Fall (1 source) Unspecified fall, initial encounter; Translations: [Unspecified fall, initial encounter] Onset: 01-19-2024 Episodic Fracture of lower limb (9 sources) Closed fracture of fifth metatarsal bone; Translations: [Nondisplaced fracture of fifth metatarsal bone, right foot, subsequent encounter for fracture with nonunion] Onset: 06-15-2023 Resolved: 10-22-2023 10-22-2023 Episodic Headache; including migraine (9 sources) Headache; Translations: [Headache] Onset: 07-07-2022 07-07-2022 Episodic Malaise and fatigue (2 sources) Fatigue Onset: 07-27-2023 Episodic Mood disorders (10 sources) Mood disorders; Translations: [Depression, unspecified] Onset: 07-07-2022 07-13-2024 Open wounds of extremities (1 source) Unspecified open wound, left lower leg, initial encounter; Translations: [Unspecified open wound, left lower leg, initial encounter] Onset: 01-19-2024 Episodic Other acquired deformities (9 sources) Acquired unequal leg length; Translations: [Unequal limb length (acquired), left femur] Onset: 05-12-2023 06-12-2023 Episodic Other aftercare (1 source) Encounter for therapeutic drug level monitoring; Translations: [Encounter for therapeutic drug level monitoring] Onset: 09-09-2023 Episodic Other aftercare (1 source) Other care home (current) drug therapy; Translations: [Other care home (current) drug therapy] Onset: 09-09-2023 Episodic Other aftercare (9 sources) Long-term current use of drug therapy; Translations: [Encounter for therapeutic drug level monitoring] Onset: 09-09-2023 09-09-2023 Episodic Other aftercare (9 sources) Long-term current use of anticoagulant; Translations: [shelter (current) use of anticoagulants] Onset: 07-21-2016 Resolved: 09-17-2016 09-17-2016 Episodic Other injuries and conditions due to external causes (3 sources) Other injury of unspecified body region, initial encounter; Translations: [Other injury of unspecified body region, initial encounter] Onset: 01-19-2024 Episodic Other injuries and conditions due to external causes (1 source) Unspecified injury of head, initial encounter; Translations: [Unspecified injury of head, initial encounter] Onset: 01-07-2024 Episodic Other lower respiratory disease (1 source) Shortness of breath Onset: 07-27-2023 Episodic Other non-traumatic joint disorders (1 source) Hip pain Onset: 06-02-2024 Episodic Other nutritional; endocrine; and metabolic disorders (9 sources) Severe obesity; Translations: [Morbid (severe) obesity due to excess calories] Onset: 02-12-2017 Resolved: 10-15-2022 10-15-2022 Chronic Residual codes; unclassified (9 sources) History of tricuspid valve repair; Translations: [Other specified postprocedural states] Onset: 11-21-2020 11-21-2020 Episodic Sprains and strains (1 source) Unspecified sprain of left thumb, initial encounter; Translations: [Unspecified sprain of left thumb, initial encounter] Onset: 06-02-2024 Episodic Superficial injury; contusion (1 source) Contusion of right hip, initial encounter; Translations: [Contusion of right hip, initial encounter] Onset: 06-02-2024 Episodic Unclassified (9 sources) Onset: 07-13-2024 07-13-2024 Results Test Name Value Interpretation Reference Range Facility MAGNESIUMon 10-19-2024 Magnesium [Mass/Vol] 1.9 mg/dL Normal 1.8-2.6 [facility] Comment on above: Performed By: #### 1 9123-9 #### [facility] ([id number]) [address], [address] [place] [address] CBC AND AUTO DIFFon 06-13-20 24 ABSOLUTE BASOPHIL 0.0 X10E9/L Normal 0.0-0.2 [facility] Comment on above: Performed By: #### B MP, PINR, CBC #### [facility] ([id number]) [address], [address] [place] [address] ABSOLUTE NEUTROPHIL 2.8 X10E9/L Normal 1.5-6.6 [facility] Comment on above: Performed By: #### B MP, PINR, CBC #### [facility] ([id number]) [address], [address] [place] [address] Basophils/100 WBC (Bld) 0.8 % Normal [facility] Comment on above: Performed By: #### B MP, PINR, CBC #### [facility] ([id number]) [address], [address] [place] [address] Eosinophils (Bld) [#/Vol] 0.1 10*3/uL Normal 0.0-0.4 [facility] Comment on above: Performed By: #### B MP, PINR, CBC #### [facility] ([id number]) [address], [address] [place] [address] Eosinophils/100 WBC (Bld) 3.7 % Normal [facility] Comment on above: Performed By: #### B MP, PINR, CBC #### [facility] ([id number]) [address] [address] [place] [address] Erythrocyte distribution width (RBC) [Ratio] 19.1 % High 11.5-15.0 [facility] Comment on above: Performed By: #### B MP, PINR, CBC #### [facility] ([id number]) [address], [address] [place] [address] Hematocrit (Bld) [Volume fraction] 25.2 % Low 35-47 [facility] Comment on above: Performed By: #### B MP, PINR, CBC #### [facility] ([id number]) [address], [facility] [address] [place] [address] Hemoglobin (Bld) [Mass/Vol] 8.3 g/dL Low 11.7-15.5 [facility] Comment on above: Performed By: #### B OSMAR, PINR, CBC #### [facility] ([id number]) [address], [facility] [address] [place] [address] Lymphocytes (Bld) [#/Vol] 0.6 10*3/uL Low 1.0-3.5 [facility] Comment on above: Performed By: #### B MP, PINR, CBC #### [facility] ([id number]) [address] [address] [place] [address] Lymphocytes/100 WBC (Bld) 14.9 % Normal [facility] Comment on above: Performed By: #### B MP, PINR, CBC #### [facility] ([id number]) [address], [facility] [address] [place] [address] MCH (RBC) [Entitic mass] 30.8 pg Normal 27-34 [facility] Comment on above: Performed By: #### B MP, PINR, CBC #### [facility] ([id number]) [address] [address] [place] [address] MCHC (RBC) [Mass/Vol] 32.8 g/dL Normal 32-36 [facility] Comment on above: Performed By: #### B MP, PINR, CBC #### [facility] ([id number]) [address], [address] [place] [address] MCV (RBC) [Entitic vol] 94 fL Normal 80-100 [facility] Comment on above: Performed By: #### B MP, PINR, CBC #### [facility] ([id number]) [address], [address] [place] [address] Monocytes (Bld) [#/Vol] 0.4 10*3/uL Normal 0-0.9 [facility] Comment on above: Performed By: #### B MP, PINR, CBC #### [facility] ([id number]) [address], [address] [place] [address] Monocytes/100 WBC (Bld) 9.9 % Normal [facility] Comment on above: Performed By: #### B MP, PINR, CBC #### [facility] ([id number]) [address], [address] [place] [address] Neutrophils/100 WBC (Bld) 70.7 % Normal [facility] Comment on above: Performed By: #### B MP, PINR, CBC #### [facility] ([id number]) [address], [address] [place] [address] Platelet mean volume (Bld) [Entitic vol] 7.6 fL Normal 7-12 [facility] Comment on above: Performed By: #### B MP, PINR, CBC #### [facility] ([id number]) [address], [address] [place] [address] Platelets (Bld) [#/Vol] 168 10*3/uL Normal 150-450 [facility] Comment on above: Performed By: #### B MP, PINR, CBC #### [facility] ([id number]) [address], [address] [place] [address] RBC COUNT 2.69 X10E12/L Low 3.80-5.20 [facility] Comment on above: Performed By: #### B MP, PINR, CBC #### [facility] ([id number]) [address], [address] [place] [address] WBC (Bld) [#/Vol] 3.9 10*3/uL Low 4.0-11.0 [facility] Comment on above: Performed By: #### B MP, PINR, CBC #### [facility] ([id number]) [address], [address] [place] [address] FERRITINon 06-13-2024 Ferritin [Mass/Vol] 64 ng/mL Normal 11-307 [facility] Comment on above: Performed By: #### B OSMAR, PINR, CBC #### [facility] ([id number]) [address], [address] [place] [address] IRON PROFILEon 06-13-2024 Iron [Mass/Vol] 57 ug/dL Normal 50-170 [facility] Comment on above: Performed By: #### B OSMAR, PINR, CBC #### [facility] ([id number]) [address], [address] [place] [address] IRON BINDING 410 ug/dL Normal 250-425 [facility] Comment on above: Performed By: #### B MP, PINR, CBC #### [facility] ([id number]) [address], [address] [address] IRON SATURATION 14 % SATURATION Low 15-50 [facility] Comment on above: Performed By: #### B MP, PINR, CBC #### [facility] ([id number]) [address], [address] [place] [address] VITAMIN B12on 06-13-2024 Cobalamin (Vitamin B12) [Mass/Vol] pg/mL High 180-914 [facility] Comment on above: Performed By: #### B MP, PINR, CBC #### [facility] ([id number]) [address], [address] [place] [address] CBC AND AUTO DIFFon 10-30-20 24 ABSOLUTE BASOPHIL 0.1 X10E9/L Normal 0.0-0.2 [facility] Comment on above: Performed By: #### C BCA #### [facility] ([id number]) [address], [address] [place] [address] ABSOLUTE NEUTROPHIL 3.4 X10E9/L Normal 1.5-6.6 [facility] Comment on above: Performed By: #### C BCA #### [facility] ([id number]) [address], [address] [place] [address] Basophils/100 WBC (Bld) 1.1 % Normal [facility] Comment on above: Performed By: #### C BCA #### [facility] ([id number]) [address], [address] [place] [address] Eosinophils (Bld) [#/Vol] 0.1 10*3/uL Normal 0.0-0.4 [facility] Comment on above: Performed By: #### C BCA #### [facility] ([id number]) [address], [address] [place] [address] Eosinophils/100 WBC (Bld) 2.6 % Normal [facility] Comment on above: Performed By: #### C BCA #### [facility] ([id number]) [address] [place] [address] Erythrocyte distribution width (RBC) [Ratio] 15.8 % High 11.5-15.0 [facility] Comment on above: Performed By: #### C BCA #### [facility] ([id number]) [address], [address] [place] [address] Hematocrit (Bld) [Volume fraction] 24.6 % Low 35-47 [facility] Comment on above: Performed By: #### C BCA #### [facility] ([id number]) [address], [address] [place] [address] Hemoglobin (Bld) [Mass/Vol] 8.2 g/dL Low 11.7-15.5 [facility] Comment on above: Performed By: #### C BCA #### [facility] ([id number]) [address], [address] [place] [address] Lymphocytes (Bld) [#/Vol] 0.8 10*3/uL Low 1.0-3.5 [facility] Comment on above: Performed By: #### C BCA #### [facility] ([id number]) [address], [address] [place] [address] Lymphocytes/100 WBC (Bld) 16.4 % Normal [facility] Comment on above: Performed By: #### C BCA #### [facility] ([id number]) [address], [address] [place] [address] MCH (RBC) [Entitic mass] 30.4 pg Normal 27-34 [facility] Comment on above: Performed By: #### C BCA #### [facility] ([id number]) [address], [address] [place] [address] MCHC (RBC) [Mass/Vol] 33.3 g/dL Normal 32-36 [facility] Comment on above: Performed By: #### C BCA #### [facility] ([id number]) [address], [address] [place] [address] MCV (RBC) [Entitic vol] 91 fL Normal 80-100 [facility] Comment on above: Performed By: #### C BCA #### [facility] ([id number]) [address], [address] [place] [address] Monocytes (Bld) [#/Vol] 0.6 10*3/uL Normal 0-0.9 [facility] Comment on above: Performed By: #### C BCA #### [facility] ([id number]) [address], [address] [place] [address] Monocytes/100 WBC (Bld) 12.4 % Normal [facility] Comment on above: Performed By: #### C BCA #### [facility] ([id number]) [address], [address] [place] [address] Neutrophils/100 WBC (Bld) 67.5 % Normal [facility] Comment on above: Performed By: #### C BCA #### [facility] ([id number]) [address], [address] [place] [address] Platelet mean volume (Bld) [Entitic vol] 8.0 fL Normal 7-12 [facility] Comment on above: Performed By: #### C BCA #### [facility] ([id number]) [address] [address] [place] [address] Platelets (Bld) [#/Vol] 176 10*3/uL Normal 150-450 [facility] Comment on above: Performed By: #### C BCA #### [facility] ([id number]) [address], [address] [place] [address] RBC COUNT 2.70 X10E12/L Low 3.80-5.20 [facility] Comment on above: Performed By: #### C BCA #### [facility] ([id number]) [address] [address] [place] [address] WBC (Bld) [#/Vol] 5.1 10*3/uL Normal 4.0-11.0 [facility] Comment on above: Performed By: #### C BCA #### [facility] ([id number]) [address], [address] [place] [address] XR FINGER THUMB LT MIN 2 VWS on 06-02-2024 XR FINGER THUMB LT MIN 2 VWS XR FINGER THUMB LT MIN 2 VWS History: Fall, thumb pain. EXAM: Left thumb 3 views COMPARISON: None FINDINGS: No fracture or dislocation. No osseous destruction. Mild degenerative changes. IMPRESSION: No acute fracture. Finalized by Yasmin Gerardo MD on 06/02/2024 4:44 PM Normal [facility] XR HIP RT 2-3 VIEWS W OR WO PELVISon 06-02-2024 XR HIP RT 2-3 VIEWS W OR WO PELVIS XR HIP RT 2-3 VIEWS W OR WO PELVIS History: Fall, right-sided pain EXAM: Pelvis right hip COMPARISON: CT abdomen pelvis 08/29/2023 FINDINGS: No fracture or dislocation. No osseous destruction. IMPRESSION: No acute fracture Finalized by Yasmin Gerardo MD on 06/02/2024 4:46 PM Normal [facility] CBC AND AUTO DIFFon 03-30-20 ABSOLUTE BASOPHIL 0.0 X10E9/L Normal 0.0-0.2 [facility] Comment on above: Performed By: #### C BCA, FEPR, THYR, 2275-11, 2132-04, 74557-2 ####[facility] ([id number])[address], [address] [place] [address] ABSOLUTE NEUTROPHIL 1.8 X10E9/L Normal 1.5-6.6 [facility] Comment on above: Performed By: #### C BCA, FEPR, THYR, 2275-11, 2132-04, 78642-8 ####[facility] ([id number])[address], [address] [place] [address] Basophils/100 WBC (Bld) 1.3 % Normal [facility] Comment on above: Performed By: #### C BCA, FEPR, THYR, 2275-11, 2132-04, 05903-6 ####[facility] ([id number])[address], [address] [place] [address] Eosinophils (Bld) [#/Vol] 0.1 10*3/uL Normal 0.0-0.4 [facility] Comment on above: Performed By: #### C BCA, FEPR, THYR, 2275-11, 2132-04, 05884-0 ####[facility] ([id number])[address] [address] [place] [address] Eosinophils/100 WBC (Bld) 3.9 % Normal [facility] Comment on above: Performed By: #### C BCA, FEPR, THYR, 2275-11, 2132-04, 27383-8 ####[facility] ([id number])[address] [address] Erythrocyte distribution width (RBC) [Ratio] 15.0 % Normal 11.5-15.0 [facility] Comment on above: Performed By: #### C BCA, FEPR, THYR, 2275-11, 2132-04, 69583-3 ####[facility] ([id number])[address] [address] Hematocrit (Bld) [Volume fraction] 36.4 % Normal 35-47 [facility] Comment on above: Performed By: #### C BCA, FEPR, THYR, 2275-11, 2132-04, 72367-2 ####[facility] ([id number])[address] [address] Hemoglobin (Bld) [Mass/Vol] 11.7 g/dL Normal 11.7-15.5 [facility] Comment on above: Performed By: #### C BCA, FEPR, THYR, 2275-11, 2132-04, 51682-2 ####[facility] ([id number])[address] [address] Lymphocytes (Bld) [#/Vol] 0.8 10*3/uL Low 1.0-3.5 [facility] Comment on above: Performed By: #### C BCA, FEPR, THYR, 2275-11, 2132-04, 12819-6 ####[facility] ([id number])[address] [address] [place] [address] Lymphocytes/100 WBC (Bld) 25.1 % Normal [facility] Comment on above: Performed By: #### C BCA, FEPR, THYR, 2275-11, 2132-04, 45045-3 ####[facility] ([id number])[address] [address] MCH (RBC) [Entitic mass] 28.5 pg Normal 27-34 [facility] Comment on above: Performed By: #### C BCA, FEPR, THYR, 2275-11, 2132-04, 53604-6 ####[facility] ([id number])[address] [address] [place] [address] MCHC (RBC) [Mass/Vol] 32.1 g/dL Normal 32-36 [facility] Comment on above: Performed By: #### C BCA, FEPR, THYR, 2275-11, 2132-04, 95872-7 ####[facility] ([id number])[address] [address] MCV (RBC) [Entitic vol] 89 fL Normal 80-100 [facility] Comment on above: Performed By: #### C BCA, FEPR, THYR, 2275-11, 2132-04, 53770-5 ####[facility] ([id number])[address] [address] Monocytes (Bld) [#/Vol] 0.3 10*3/uL Normal 0-0.9 [facility] Comment on above: Performed By: #### C BCA, FEPR, THYR, 2275-11, 2132-04, 07268-4 ####[facility] ([id number])[address], [address] [address] Monocytes/100 WBC (Bld) 10.5 % Normal [facility] Comment on above: Performed By: #### C BCA, FEPR, THYR, 2275-11, 2132-04, 18370-8 ####[facility] ([id number])[address], [address], [place] [address] Neutrophils/100 WBC (Bld) 59.2 % Normal [facility] Comment on above: Performed By: #### C BCA, FEPR, THYR, 2275-11, 2132-04, 22871-1 ####[facility] ([id number])[address] [address] Platelet mean volume (Bld) [Entitic vol] 8.3 fL Normal 7-12 [facility] Comment on above: Performed By: #### C BCA, FEPR, THYR, 2275-11, 2132-04, 06648-5 ####[facility] ([id number])[address] [address] Platelets (Bld) [#/Vol] 101 10*3/uL Low 150-450 [facility] Comment on above: Performed By: #### C BCA, FEPR, THYR, 2275-11, 2132-04, 68812-2 ####[facility] ([id number])[address], [address], [place] [address] RBC COUNT 4.10 X10E12/L Normal 3.80-5.20 [facility] Comment on above: Performed By: #### C BCA, FEPR, THYR, 2275-11, 2132-04, 22966-6 ####[facility] ([id number])[address], [address] [address] WBC (Bld) [#/Vol] 3.0 10*3/uL Low 4.0-11.0 [facility] Comment on above: Performed By: #### C BCA, FEPR, THYR, 6-4, 9, 22981-7 ####[facility] ([id number])[address], [address] [place] [address] FERRITINon 03-30-2024 Ferritin [Mass/Vol] 15 ng/mL Normal 11-307 [facility] Comment on above: Performed By: #### C BCA, FEPR, THYR, 6-4, 9, 98178-0 ####[facility] ([id number])[address], [place] [address] IRON PROFILEon 03-30-2024 Iron [Mass/Vol] 93 ug/dL Normal 50-170 [facility] Comment on above: Performed By: #### C BCA, FEPR, THYR, 2275-4, 9, 44629-4 ####[facility] ([id number])[address], [address] [place] [address] IRON BINDING 510 ug/dL High 250-425 [facility] Comment on above: Performed By: #### C BCA, FEPR, THYR, 2275-4, 9, 77566-0 ####[facility] ([id number])[address], [address] [place] [address] IRON SATURATION 18 % SATURATION Normal 15-50 [facility] Comment on above: Performed By: #### C BCA, FEPR, THYR, 6-4, 9, 43015-0 ####[facility] ([id number])[address], [place] [address] THYROID PROFILEon 03-30-2024 Free T4 [Mass/Vol] 0.81 ng/dL Normal 0.61-1.60 [facility] Comment on above: Performed By: #### C BCA, FEPR, THYR, 2275-11, 2132-04, 93222-0 ####[facility] ([id number])[address], [place] [address] TSH 1.42 uIU/mL Normal 0.49-4.67 [facility] Comment on above: Performed By: #### C BCA, FEPR, THYR, 2275-11, 2132-04, 69119-9 ####[facility] ([id number])[address] [address] VITAMIN B12on 03-30-2024 Cobalamin (Vitamin B12) [Mass/Vol] pg/mL High 180-914 [facility] Comment on above: Performed By: #### C BCA, FEPR, THYR, 2275-11, 2132-04, 82723-9 ####[facility] ([id number])[address] [address] Vitamin D+Metabolites [Mass/ Vol]on 03-30-2024 VITAMIN D 25 HYD TOT 69.7 ng/mL Normal 30-100 [facility] Comment on above: Result Comment: Vitamin D status 25 [place] Vitamin D Deficiency <20 ng/mL Insufficiency 20-29 ng/mL Sufficiency 30-100 ng/mL Toxicity >100 ng/mL NOTE: A pediatric reference range has not been established by the color print inspector of this kit. The [place] [employer] recommends a Vitamin D level of = or >20ng/mL in infants and children. Performed By: #### C BCA, FEPR, THYR, 2275-11, 2132-04, 28053-6 ####[facility] ([id number])[address], [place] [address] CT BRAIN WO CONTon 06-03-[address] BRAIN WO CONT CT BRAIN WO CONT STUDY: CT BRAIN WO CONT INDICATION: Head trauma, initial encounter. TECHNIQUE: * CT head was performed without intravenous contrast using the standard protocol. Automated exposure control was utilized. * All CT scans at this facility use dose modulation, iterative reconstruction, and/or weight based dosing when appropriate to reduce radiation dose to as low as reasonably achievable. FINDINGS: Comparison is made to 03/20/2010. 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 No evidence of obstructive hydrocephalus or transependymal flow CSF. No acute intracranial hemorrhage, mass effect, midline shift or extra-axial fluid collection. Brain volume, ventricles and sulci are otherwise unremarkable. Small right frontal scalp contusion/hematoma. Bilateral lens replacements. Intracranial atherosclerosis. Paranasal sinuses and mastoid air cells are clear. IMPRESSION: * No acute intracranial abnormality, by CT. * Small right frontal scalp contusion/hematoma. * Similar colloid cyst without evidence of obstructive hydrocephalus. Finalized by Reinaldo Mendiola on 01/11/2024 8:48 AM Normal [facility] Glucose Glucometer (BldC) [M ass/Vol]on 10-28-2023 Glucose [Mass/Vol] 84 mg/dL Normal 65-99 [facility] Glucose Glucometer (BldC) [M ass/Vol]on 10-26-2023 Glucose [Mass/Vol] 127 mg/dL High 65-99 [facility] CBC AND AUTO DIFFon 10-22-19 24 ABSOLUTE BASOPHIL 0.0 X10E9/L Normal 0.0-0.2 [facility] Comment on above: Performed By: #### C DANIELA, 48326-7, 2276-4 #### [facility] ([id number]) [address], [address] [place] [address] ABSOLUTE NEUTROPHIL 2.0 X10E9/L Normal 1.5-6.6 [facility] Comment on above: Performed By: #### C DANIELA, 87542-8, 2276-4 #### [facility] ([id number]) [address], [address] [place] [address] Basophils/100 WBC (Bld) 1.1 % Normal [facility] Comment on above: Performed By: #### Ricki SUAREZ, 48578-9, 2275-11 #### [facility] ([id number]) [address], [facility] [address] [place] [address] Eosinophils (Bld) [#/Vol] 0.2 10*3/uL Normal 0.0-0.4 [facility] Comment on above: Performed By: #### Ricki SUAREZ, 73477-9, 2275- #### [facility] ([id number]) [address], [facility] [address] [place] [address] Eosinophils/100 WBC (Bld) 5.3 % Normal [facility] Comment on above: Performed By: #### Ricki SUAREZ, 31842-4, 2275-11 #### [facility] ([id number]) [address], [facility] [address] [place] [address] Erythrocyte distribution width (RBC) [Ratio] 14.9 % Normal 11.5-15.0 [facility] Comment on above: Performed By: #### Ricki SUAREZ, 79496-0, 2275-11 #### [facility] ([id number]) [address], [facility] [address] [place] [address] Hematocrit (Bld) [Volume fraction] 35.7 % Normal 35-47 [facility] Comment on above: Performed By: #### Ricki SUAREZ, 43381-7, 2275-11 #### [facility] ([id number]) [address], [facility] [address] [place] [address] Hemoglobin (Bld) [Mass/Vol] 11.8 g/dL Normal 11.7-15.5 [facility] Comment on above: Performed By: #### Ricki SUAREZ, 78082-9, 2275- #### [facility] ([id number]) [address] [place] [address] Lymphocytes (Bld) [#/Vol] 1.0 10*3/uL Normal 1.0-3.5 [facility] Comment on above: Performed By: #### Ricki SUAREZ, 63359-9, 2275-11 #### [facility] ([id number]) [address] [address] Lymphocytes/100 WBC (Bld) 27.3 % Normal [facility] Comment on above: Performed By: #### Ricki SUAREZ, 46873-7, 2275-11 #### [facility] ([id number]) [address] [address] MCH (RBC) [Entitic mass] 28.7 pg Normal 27-34 [facility] Comment on above: Performed By: #### Ricki SUAREZ, , 2275-11 #### [facility] ([id number]) [address] [address] MCHC (RBC) [Mass/Vol] 32.9 g/dL Normal 32-36 [facility] Comment on above: Performed By: #### Ricki SUAREZ, , 2275-11 #### [facility] ([id number]) [address] [address] MCV (RBC) [Entitic vol] 87 fL Normal 80-100 [facility] Comment on above: Performed By: #### Ricki SUAREZ, 22922-0, 2275-11 #### [facility] ([id number]) [address] [address] [place] [address] Monocytes (Bld) [#/Vol] 0.4 10*3/uL Normal 0-0.9 [facility] Comment on above: Performed By: #### Ricki SUAREZ, , 2275-11 #### [facility] ([id number]) [address] [place] [address] Monocytes/100 WBC (Bld) 11.5 % Normal [facility] Comment on above: Performed By: #### Ricki SUAREZ, 30350-0, 2275-4 #### [facility] ([id number]) [address] [place] [address] Neutrophils/100 WBC (Bld) 54.8 % Normal [facility] Comment on above: Performed By: #### Ricki SUAREZ, 88128-4, 2275-4 #### [facility] ([id number]) [address] [place] [address] Platelet mean volume (Bld) [Entitic vol] 8.0 fL Normal 7-12 [facility] Comment on above: Performed By: #### Ricki SUAREZ, 20468-1, 2275- #### [facility] ([id number]) [address] [place] [address] Platelets (Bld) [#/Vol] 111 10*3/uL Low 150-450 [facility] Comment on above: Performed By: #### Ricki SUAREZ, 61005-0, 2275- #### [facility] ([id number]) [address], [address] [place] [address] RBC COUNT 4.10 X10E12/L Normal 3.80-5.20 [facility] Comment on above: Performed By: #### Ricki SUAREZ, 01719-7, 2275- #### [facility] ([id number]) [address], [address] [place] [address] WBC (Bld) [#/Vol] 3.7 10*3/uL Low 4.0-11.0 [facility] Comment on above: Performed By: #### Ricki SUAREZ, 14580-6, 2275- #### [facility] ([id number]) [address] [place] [address] FERRITINon 10-22-2023 Ferritin [Mass/Vol] 22 ng/mL Normal 11-307 [facility] Comment on above: Performed By: #### Ricki SUAREZ, 73718-4, 2276-4 ####[facility] ([id number])[address] [address] HGB A1C (GLYCO-HGB)on 2023 Glucose [Mass/Vol] 143 mg/dL Normal [facility] Comment on above: Performed By: #### Ricki SUAREZ, 81425-9, 6-4 ####[facility] ([id number])[address] [address] HbA1c (Bld) [Mass fraction] 6.6 % High 4.4-5.6 [facility] Comment on above: Result Comment: NOTE ADA Guidelines Result HgbA1c Normal : less than 5.7 % Prediabetes : 5.7 % to 6.4 % Diabetes : > 6.4 % Use with caution in patients with abnormal hemoglobin variants as the half-life of red blood cells and in vivo glycation rates are affected. Performed By: #### Ricki SUAREZ, 28766-8, 2276-4 ####[facility] ([id number])[address] [address] Lipid 1996 panelon Cholesterol [Mass/Vol] 133 mg/dL Low 150-200 [facility] Comment on above: Performed By: #### Ricki SUAREZ, 30052-0, 2276-4 ####[facility] ([id number])[address] [address] Cholesterol in HDL [Mass/Vol] 54 mg/dL Normal >39 [facility] Comment on above: Result Comment: HDL <40 mg/dL - High Risk HDL > or = 40mg/dL- Desirable HDL >60 mg/dL - Negative Risk Performed By: #### Ricki SUAREZ, 76767-0, 2275-4 ####[facility] ([id number])[address] [address] [place] [address] Cholesterol in LDL [Mass/Vol] 64 mg/dL Normal <130 [facility] Comment on above: Result Comment: LDL <100 mg/dL - Desirable LDL >160 mg/dL - High Risk Performed By: #### Ricki SUAREZ, 50266-2, 2275- ####[facility] ([id number])[address] [address] [place] [address] Cholesterol in VLDL [Mass/Vol] 15 mg/dL Normal 0-30 [facility] Comment on above: Performed By: #### Ricki SUAREZ, 78315-0, 2275-4 ####[facility] ([id number])[address] [place] [address] CHOLESTEROL:HDL 2.5 Normal 1.0-5.0 [facility] Comment on above: Performed By: #### Ricki SUAREZ, [id number], 2275-4 ####[facility] ([id number])[address] [address] [place] [address], [place] [address] Triglyceride [Mass/Vol] 74 mg/dL Normal 27-150 [facility] Comment on above: Performed By: #### Ricki SUAREZ, [id number], 2275-4 ####[facility] ([id number])[address] [address] MICROALBUMIN - ALBUMIN:CREAT ININE URINE RATIOon 10-22-2023 ALB/CREAT RATIO NOT CALCULATED Normal 0.0-30.0 [facility] Comment on above: Result Comment: Result for Albumin/Creatinine Ratio cannot be reliably calculated because urine albumin and or urine creatinine is below the detection limit of the assay. Performed By: #### M ALBU ####[facility] ([id number])[address] [address] Albumin DL <= 20 mg/L (U) [Mass/Vol] mg/dL Normal 0.0-1.9 [facility] Comment on above: Performed By: #### M ALBU ####[facility] ([id number])[address] [address], [place] [address] URINE CREAT 11.99 mg/dL Normal [facility] Comment on above: Performed By: #### M ALBU ####[facility] ([id number])[address] [address] BASIC METABOLIC PANLon 09-17 Anion gap [Moles/Vol] 6 mmol/L Normal 5-15 [facility] Comment on above: Performed By: #### C BCA, BMP #### [facility] ([id number]) [address], [address] [place] [address] Calcium [Mass/Vol] 8.7 mg/dL Normal 8.5-10.5 [facility] Comment on above: Performed By: #### C BCA, BMP #### [facility] ([id number]) [address], [address] [place] [address] Chloride [Moles/Vol] 103 mmol/L Normal 98-109 [facility] Comment on above: Performed By: #### C BCA, BMP #### [facility] ([id number]) [address], [address] [place] [address] CO2 [Moles/Vol] 32 mmol/L Normal 22-32 [facility] Comment on above: Performed By: #### C BCA, BMP #### [facility] ([id number]) [address] [address] [place] [address] Creatinine [Mass/Vol] 0.50 mg/dL Normal 0.40-1.00 [facility] Comment on above: Result Comment: METH OD TRACEABLE TO IDMS STANDARD Performed By: #### C BCA, BMP #### [facility] ([id number]) [address] [place] [address] eGFR (CKD-EPI) NON-RACE DEPENDENT >90 Normal >59 [facility] Comment on above: Result Comment: Reported eGFR is based on the CKD-EPI 2020 equation that does not use a race coefficient. Performed By: #### C BCA, BMP #### [facility] ([id number]) [address] [address] [place] [address] Glucose [Mass/Vol] 110 mg/dL High 65-99 [facility] Comment on above: Performed By: #### C BCA, BMP #### [facility] ([id number]) [address] [address] [place] [address] Potassium [Moles/Vol] 4.0 mmol/L Normal 3.5-5.0 [facility] Comment on above: Performed By: #### C BCA, BMP #### [facility] ([id number]) [address] [address] [place] [address] Sodium [Moles/Vol] 141 mmol/L Normal 134-146 [facility] Comment on above: Performed By: #### C BCA, BMP #### [facility] ([id number]) [address] [address] Urea nitrogen [Mass/Vol] 11 mg/dL Normal 5-27 [facility] Comment on above: Performed By: #### C BCA, BMP #### [facility] ([id number]) [address] [address] [place] [address] CBC AND AUTO DIFFon 09-17-19 24 ABSOLUTE BASOPHIL 0.0 X10E9/L Normal 0.0-0.2 [facility] Comment on above: Performed By: #### C DANIELA, BMP #### [facility] ([id number]) [address] [place] [address] ABSOLUTE NEUTROPHIL 3.4 X10E9/L Normal 1.5-6.6 [facility] Comment on above: Performed By: #### C DANIELA, BMP #### [facility] ([id number]) [address] [place] [address] Basophils/100 WBC (Bld) 0.4 % Normal [facility] Comment on above: Performed By: #### C DANIELA, BMP #### [facility] ([id number]) [address], [address] [place] [address] Eosinophils (Bld) [#/Vol] 0.1 10*3/uL Normal 0.0-0.4 [facility] Comment on above: Performed By: #### C DANIELA, BMP #### [facility] ([id number]) [address] [place] [address] Eosinophils/100 WBC (Bld) 2.3 % Normal [facility] Comment on above: Performed By: #### C DANIELA, BMP #### [facility] ([id number]) [address] [place] [address] Erythrocyte distribution width (RBC) [Ratio] 14.6 % Normal 11.5-15.0 [facility] Comment on above: Performed By: #### C DANIELA, BMP #### [facility] ([id number]) [address], [address] [place] [address] Hematocrit (Bld) [Volume fraction] 31.2 % Low 35-47 [facility] Comment on above: Performed By: #### C BCA, BMP #### [facility] ([id number]) [address] [place] [address] Hemoglobin (Bld) [Mass/Vol] 10.4 g/dL Low 11.7-15.5 [facility] Comment on above: Performed By: #### C BCA, BMP #### [facility] ([id number]) [address] [place] [address] Lymphocytes (Bld) [#/Vol] 0.6 10*3/uL Low 1.0-3.5 [facility] Comment on above: Performed By: #### C BCA, BMP #### [facility] ([id number]) [address] [place] [address] Lymphocytes/100 WBC (Bld) 13.4 % Normal [facility] Comment on above: Performed By: #### C BCA, BMP #### [facility] ([id number]) [address] [place] [address] MCH (RBC) [Entitic mass] 29.9 pg Normal 27-34 [facility] Comment on above: Performed By: #### C BCA, BMP #### [facility] ([id number]) [address] [place] [address] MCHC (RBC) [Mass/Vol] 33.2 g/dL Normal 32-36 [facility] Comment on above: Performed By: #### C BCA, BMP #### [facility] ([id number]) [address] [place] [address] MCV (RBC) [Entitic vol] 90 fL Normal 80-100 [facility] Comment on above: Performed By: #### C BCA, BMP #### [facility] ([id number]) [address] [place] [address] Monocytes (Bld) [#/Vol] 0.6 10*3/uL Normal 0-0.9 [facility] Comment on above: Performed By: #### C DANIELA, BMP #### [facility] ([id number]) [address] [place] [address] Monocytes/100 WBC (Bld) 12.2 % Normal [facility] Comment on above: Performed By: #### C DANIELA, BMP #### [facility] ([id number]) [address] [place] [address] Neutrophils/100 WBC (Bld) 71.7 % Normal [facility] Comment on above: Performed By: #### C DANIELA, BMP #### [facility] ([id number]) [address] [place] [address] Platelet mean volume (Bld) [Entitic vol] 8.3 fL Normal 7-12 [facility] Comment on above: Performed By: #### C DANIELA, BMP #### [facility] ([id number]) [address] [place] [address] Platelets (Bld) [#/Vol] 77 10*3/uL Low 150-450 [facility] Comment on above: Performed By: #### C DANIELA, BMP #### [facility] ([id number]) [address] [place] [address] RBC COUNT 3.47 X10E12/L Low 3.80-5.20 [facility] Comment on above: Performed By: #### C DANIELA, BMP #### [facility] ([id number]) [address] [place] [address] WBC (Bld) [#/Vol] 4.7 10*3/uL Normal 4.0-11.0 [facility] Comment on above: Performed By: #### C DANIELA, BMP #### [facility] ([id number]) [address] [address] [place] [address] BASIC METABOLIC PANLon 09-16 Anion gap [Moles/Vol] 2 mmol/L Low 5-15 [facility] Comment on above: Performed By: #### B JENNIFER PRASADR, CBC #### [facility] ([id number]) [address] [address] [place] [address] Calcium [Mass/Vol] 8.3 mg/dL Low 8.5-10.5 [facility] Comment on above: Performed By: #### B OSMAR PINR, CBC #### [facility] ([id number]) [address] [address] [place] [address] Chloride [Moles/Vol] 108 mmol/L Normal 98-109 [facility] Comment on above: Performed By: #### B JENNIFER PRASADR, CBC #### [facility] ([id number]) [address] [address] [place] [address] CO2 [Moles/Vol] 34 mmol/L High 22-32 [facility] Comment on above: Performed By: #### B SHALOM PRASAD, CBC #### [facility] ([id number]) [address] [address] [place] [address] Creatinine [Mass/Vol] 0.62 mg/dL Normal 0.40-1.00 [facility] Comment on above: Result Comment: METH OD TRACEABLE TO IDMS STANDARD Performed By: #### B JENNIFER PRASADR, CBC #### [facility] ([id number]) [address] [address] [place] [address] eGFR (CKD-EPI) NON-RACE DEPENDENT >90 Normal >59 [facility] Comment on above: Result Comment: Reported eGFR is based on the CKD-EPI 2020 equation that does not use a race coefficient. Performed By: #### B OSMAR PINR, CBC #### [facility] ([id number]) [address] [place] [address] Glucose [Mass/Vol] 123 mg/dL High 65-99 [facility] Comment on above: Performed By: #### B JENNIFER PRASADR, CBC #### [facility] ([id number]) [address] [place] [address] Potassium [Moles/Vol] 4.3 mmol/L Normal 3.5-5.0 [facility] Comment on above: Performed By: #### B OSMAR PINR, CBC #### [facility] ([id number]) [address] [place] [address] Sodium [Moles/Vol] 144 mmol/L Normal 134-146 [facility] Comment on above: Performed By: #### B OSMAR PINR, CBC #### [facility] ([id number]) [address] [place] [address] Urea nitrogen [Mass/Vol] 12 mg/dL Normal 5-27 [facility] Comment on above: Performed By: #### B SHALOM PRASAD, CBC #### [facility] ([id number]) [address] [place] [address] COMPLETE BLOOD COUNTon 09-16 Erythrocyte distribution width (RBC) [Ratio] 14.9 % Normal 11.5-15.0 [facility] Comment on above: Performed By: #### C BC #### [facility] ([id number]) [address] [place] [address] Hematocrit (Bld) [Volume fraction] 33.4 % Low 35-47 [facility] Comment on above: Performed By: #### C BC #### [facility] ([id number]) [address] [place] [address] Hemoglobin (Bld) [Mass/Vol] 10.8 g/dL Low 11.7-15.5 [facility] Comment on above: Performed By: #### C BC #### [facility] ([id number]) [address] [place] [address] MCH (RBC) [Entitic mass] 29.2 pg Normal 27-34 [facility] Comment on above: Performed By: #### C BC #### [facility] ([id number]) [address] [place] [address] MCHC (RBC) [Mass/Vol] 32.3 g/dL Normal 32-36 [facility] Comment on above: Performed By: #### C BC #### [facility] ([id number]) [address] [place] [address] MCV (RBC) [Entitic vol] 90 fL Normal 80-100 [facility] Comment on above: Performed By: #### C BC #### [facility] ([id number]) [address] [place] [address] Platelet mean volume (Bld) [Entitic vol] 8.5 fL Normal 7-12 [facility] Comment on above: Performed By: #### C BC #### [facility] ([id number]) [address] [place] [address] Platelets (Bld) [#/Vol] 104 10*3/uL Low 150-450 [facility] Comment on above: Performed By: #### C BC #### [facility] ([id number]) [address] [place] [address] RBC COUNT 3.69 X10E12/L Low 3.80-5.20 [facility] Comment on above: Performed By: #### C BC #### [facility] ([id number]) [address] [place] [address] WBC (Bld) [#/Vol] 6.3 10*3/uL Normal 4.0-11.0 [facility] Comment on above: Performed By: #### C BC #### [facility] ([id number]) [address] [place] [address] Erythrocyte distribution width (RBC) [Ratio] 14.5 % Normal 11.5-15.0 [facility] Comment on above: Performed By: #### B MP, PINR, CBC #### [facility] ([id number]) [address] [place] [address] Hematocrit (Bld) [Volume fraction] 28.7 % Low 35-47 [facility] Comment on above: Performed By: #### B MP, PINR, CBC #### [facility] ([id number]) [address] [place] [address] Hemoglobin (Bld) [Mass/Vol] 9.5 g/dL Low 11.7-15.5 [facility] Comment on above: Performed By: #### B OSMAR PINR, CBC #### [facility] ([id number]) [address] [place] [address] MCH (RBC) [Entitic mass] 29.8 pg Normal 27-34 [facility] Comment on above: Performed By: #### B MP PINR, CBC #### [facility] ([id number]) [address] [place] [address] MCHC (RBC) [Mass/Vol] 33.2 g/dL Normal 32-36 [facility] Comment on above: Performed By: #### B MP, PINR, CBC #### [facility] ([id number]) [address] [place] [address] MCV (RBC) [Entitic vol] 90 fL Normal 80-100 [facility] Comment on above: Performed By: #### B MP, PINR, CBC #### [facility] ([id number]) [address] [place] [address] Platelet mean volume (Bld) [Entitic vol] 7.8 fL Normal 7-12 [facility] Comment on above: Performed By: #### B MP, PINR, CBC #### [facility] ([id number]) [address] [place] [address] Platelets (Bld) [#/Vol] 76 10*3/uL Low 150-450 [facility] Comment on above: Performed By: #### B OSMAR, PINR, CBC #### [facility] ([id number]) [address] [place] [address] RBC COUNT 3.19 X10E12/L Low 3.80-5.20 [facility] Comment on above: Performed By: #### B MP, PINR, CBC #### [facility] ([id number]) [address] [place] [address] WBC (Bld) [#/Vol] 2.9 10*3/uL Low 4.0-11.0 [facility] Comment on above: Performed By: #### B MP, PINR, CBC #### [facility] ([id number]) [address] [place] [address] Glucose Glucometer (BldC) [M ass/Vol]on 09-16-2023 Glucose [Mass/Vol] 111 mg/dL High 65-99 [facility] PROTIME AND INRon 09-16-2023 INR Coag (PPP) [Relative time] 1.0 {INR} Normal 0.8-1.1 [facility] Comment on above: Performed By: #### B MP, PINR, CBC #### [facility] ([id number]) [address] [place] [address] PT Coag (PPP) [Time] 11.7 s Normal 9.8-13.2 [facility] Comment on above: Performed By: #### B SHALOM PRASAD, JOSÉ #### [facility] ([id number]) [address] [place] [address] CT CTA TAVRon 09-02-[address] CTA TAVR STUDY: CT angiography of the chest, abdomen and pelvis with contrast CLINICAL HISTORY: Aortic valve stenosis with preoperative assessment for aortic valve replacement (TAVR) COMPARISON: February 06, 2017. TECHNIQUE: CT Angiography of the chest, abdomen and pelvis was performed utilizing thin section gated CTA of the chest following the uneventful administration of 100 cc Isovue 370 nonionic intravenous contrast. 3D volume rendered reformatted images were generated and reviewed on an independent workstation under concurrent physician supervision. Automated exposure control was utilized. FINDINGS: Vasculature: Aortic valve: Trileaflet, heavy valve leaflet calcification. Agatston score 1821.3 Aortic annulus: 21.1 x 27.4 mm. Aortic annulus area is approximately 4.49 sq cm. Perimeter is approximately 77.2 mm. Sinotubular junction: 22.54 MPR and 26.5 CPR mm. Right coronary artery height: 14.27 mm. Left coronary artery height: 11.36 mm. Coronary cusp measurement: Right coronary, 20.97 mm. Left coronary, 25.54 mm, noncoronary 23.54 mm. Degree of right common iliac, external iliac, and common femoral artery calcification: None Degree of left common iliac, external iliac, and common femoral arterial calcification: None Minimum diameter of the right common iliac, external iliac, or common femoral artery: Common iliac 8.4 mm, area 68.6 sq mm, external iliac 6.4 mm, area 33.3 sq mm, common femoral 5.5 mm, area 24.2 sq mm Minimum diameter of the left common iliac, external iliac, or common femoral artery: Common iliac 17.9 mm, area 56.4 sq mm, external iliac 6.8 mm, area 39.3 sq mm, common femoral 5.4 mm, area 25.7 sq mm Left common carotid artery 7.1 mm, area 43.7 sq mm Left subclavian 8.3 mm, area 57.2 sq mm Right brachiocephalic 11.2 mm, area 104.7 sq mm Moderate cardiomegaly is demonstrated with biatrial enlargement Mitral valve replacement is demonstrated Coronary artery calcifications are demonstrated Thoracic aorta appropriate caliber without aneurysm dissection stenosis or occlusion No mediastinal or hilar masses or adenopathy at the levels imaged No suspicious lung nodules, consolidation or pleural fluid at the levels imaged Origins of great vessels off the aortic arch are patent Origins of the celiac trunk SMA and renal arteries are patent No aneurysm dissection stenosis or occlusion within the thoracic or abdominal aorta or bilateral common external iliac arteries or common femoral arteries No visceral aneurysms identified Within the limitations of arterial phase technique liver gallbladder spleen pancreas adrenal glands and kidneys show no acute findings Uterus and adnexa are appropriate Bladder unremarkable within limitations of no IV contrast Small ventral hernia at the level iliac crest containing a loop of large bowel axial image 330 series 304. This is situated approximately 4 cm superior to the umbilicus and is likely palpable No adenopathy within the thorax abdomen or pelvis Impression: * Small ventral hernia at the level iliac crest containing a loop of large bowel axial image 330 series 304. This is situated approximately 4 cm superior to the umbilicus and is likely palpable. * Preoperative measurements for TAVR detailed above. For reference: Minimum diameters of lower and upper vessels assist determination of which artery to enter for the procedure. Aortic root measurements to size the prosthesis as well as distance to coronaries. see 2 pacs data sheets Finalized by Froilan Lanza MD on 09/02/2023 1:01 PM Normal [facility] Glucose Glucometer (BldC) [M ass/Vol]on 08-14-2023 Glucose [Mass/Vol] 109 mg/dL High 65-99 [facility] MG MAMM SCREEN 3D THIERRY CADon 10-24-2022 MG MAMM SCREEN 3D THIERRY CAD Patient: ANASTACIA TOMLNI Exam Date: 10/24/2022 : 1950 Gender:F Ordering : DR CALI YOUNGBLOOD Admission #: [id number] Family : Order #: [id number] CLICK HERE TO VIEW EXAM RADIOLOGY REPORT PROCEDURE: MAMMOGRAM SCREENING 3D BILATERAL CAD COMPARISON: MG MAMM SCREEN 3D THIERRY CAD, 10/07/2021. MG MAMM SCREEN THIERRY W CAD, 10/04/2020. MG MAMM SCREEN THIERRY W CAD, 09/14/2019. DIGITIZED_MAMMO, 11/14/2008. INDICATIONS: Screening mammography Calculator Name NCI Breast Cancer Risk Assessment Tool 5 Year Breast Cancer Risk 1.70% Lifetime Breast Cancer Risk 4.30% Personal Breast Cancer No Personal Ovarian Cancer No Treatments None Family Cancers None LOCATION: [facility] BREAST COMPOSITION: Scattered areas fibroglandular density. FINDINGS: DIAGNOSTIC CATEGORY 2--BENIGN FINDING: RIGHT BREAST: No significant suspicious finding. No significant change has occurred. LEFT BREAST: No significant suspicious finding. Stable benign-appearing lymph node within posterior lateral breast. No significant change has occurred. RECOMMENDATIONS: ROUTINE MAMMOGRAM AND CLINICAL EVALUATION IN 12 MONTHS. PLEASE NOTE: A NORMAL MAMMOGRAM DOES NOT EXCLUDE THE POSSIBILITY OF BREAST CANCER. A CLINICALLY SUSPICIOUS PALPABLE LUMP SHOULD BE BIOPSIED. Dictated by: Yasmin Krishnamurthy M.D. on 10/24/2022 at 14:03 Approved by: Yasmin Krishnamurthy M.D. on 10/24/2022 at 14:06 Normal [facility] COMPREHENSIVE METABOLIC PANE Rahul 04-03-2022 Albumin [Mass/Vol] 4.2 g/dL Normal 3.6-5.1 [facility] Comment on above: Order Comment: FASTI NG:YES FASTING: YES Performed By: #### 4 96, [id number] #### [facility] [address], [address] [place] [address] Animal Assisted Therapist: Naren Muniz MD Albumin/Globulin [Mass ratio] 1.8 {ratio} Normal 1.0-2.5 [facility] Comment on above: Order Comment: FASTI NG:YES FASTING: YES Performed By: #### 4 96, [id number] #### [facility] [address], [address] [place] [address] Animal Assisted Therapist: Naren Muniz MD ALP [Catalytic activity/Vol] 61 U/L Normal 37-153 [facility] Comment on above: Order Comment: FASTI NG:YES FASTING: YES Performed By: #### 4 96, [id number] #### [facility] [address], [address] [place] [id number] Animal Assisted Therapist: Naren Muniz MD ALT [Catalytic activity/Vol] 23 U/L Normal 6-29 [facility] Comment on above: Order Comment: FASTI NG:YES FASTING: YES Performed By: #### 4 96, 07706 #### [facility] [place] [address] Animal Assisted Therapist: Naren Muniz MD AST [Catalytic activity/Vol] 26 U/L Normal 10-35 [facility] Comment on above: Order Comment: FASTI NG:YES FASTING: YES Performed By: #### 4 96, 92972 #### [facility] [place] [address] Animal Assisted Therapist: Naren Muniz MD Bilirubin [Mass/Vol] 0.7 mg/dL Normal 0.2-1.2 [facility] Comment on above: Order Comment: FASTI NG:YES FASTING: YES Performed By: #### 4 96, [id number] #### [facility] [place] [address] Animal Assisted Therapist: Naren Muniz MD BUN/CREATININE RATIO NOT APPLICABLE Normal 6-22 [facility] Comment on above: Order Comment: FASTI NG:YES FASTING: YES Performed By: #### 4 96, 69131 #### [facility] [place] [address] Animal Assisted Therapist: Naren Muniz MD Calcium [Mass/Vol] 9.3 mg/dL Normal 8.6-10.4 [facility] Comment on above: Order Comment: FASTI NG:YES FASTING: YES Performed By: #### 4 96, 90070 #### [facility] [place] [address] Animal Assisted Therapist: Naren Muniz MD Chloride [Moles/Vol] 103 mmol/L Normal 98-110 [facility] Comment on above: Order Comment: FASTI NG:YES FASTING: YES Performed By: #### 4 96, 95073 #### [facility] [place] [address] Animal Assisted Therapist: Naren Muniz MD CO2 [Moles/Vol] 31 mmol/L Normal 20-32 [facility] Comment on above: Order Comment: FASTI NG:YES FASTING: YES Performed By: #### 4 96, 94263 #### [facility] [place] [address] Animal Assisted Therapist: Naren Muniz MD Creatinine [Mass/Vol] 0.70 mg/dL Normal 0.60-1.00 [facility] Comment on above: Order Comment: FASTI NG:YES FASTING: YES Performed By: #### 4 96, [id number] #### [facility] [address], [address] [place] [address] Animal Assisted Therapist: Naren Muniz MD GFR/1.73 sq M.predicted among non-blacks MDRD (S/P/Bld) [Vol rate/Area] 91 mL/min/{1.73_m2} Normal > OR = 60 [facility] Comment on above: Order Comment: FASTI NG:YES FASTING: YES Result Comment: The eGFR is based on the CKD-EPI 2020 equation. To calculate the new eGFR from a previous Creatinine or Cystatin C result, go to https://www.kidney.org/professionals/ kdoqi/gfr%5Fcalculator Performed By: #### 4 96, 00256 #### [facility] [place] [address] Animal Assisted Therapist: Naren Muniz MD Globulin (S) [Mass/Vol] 2.3 g/dL Normal 1.9-3.7 [facility] Comment on above: Order Comment: FASTI NG:YES FASTING: YES Performed By: #### 4 96, 90689 #### [facility] [place] [address] Animal Assisted Therapist: Naren Muniz MD Glucose [Mass/Vol] 105 mg/dL High 65-99 [facility] Comment on above: Order Comment: FASTI NG:YES FASTING: YES Result Comment: Fasting reference interval For someone without known diabetes, a glucose value between 100 and 125 mg/dL is consistent with prediabetes and should be confirmed with a follow-up test. Performed By: #### 4 96, 21421 #### [facility] [address], [address] [place] [address] Animal Assisted Therapist: Naren Muniz MD Potassium [Moles/Vol] 4.0 mmol/L Normal 3.5-5.3 [facility] Comment on above: Order Comment: FASTI NG:YES FASTING: YES Performed By: #### 4 96, 62962 #### [facility] [address], [address] [place] [address] Animal Assisted Therapist: Naren Muniz MD Protein [Mass/Vol] 6.5 g/dL Normal 6.1-8.1 [facility] Comment on above: Order Comment: FASTI NG:YES FASTING: YES Performed By: #### 4 96, [id number] #### [facility] [place] [address] Animal Assisted Therapist: Naren Muniz MD Sodium [Moles/Vol] 141 mmol/L Normal 135-146 [facility] Comment on above: Order Comment: FASTI NG:YES FASTING: YES Performed By: #### 4 96, 75700 #### [facility] [place] [address] Animal Assisted Therapist: Naren Muniz MD Urea nitrogen [Mass/Vol] 16 mg/dL Normal 7-25 [facility] Comment on above: Order Comment: FASTI NG:YES FASTING: YES Performed By: #### 4 96, 06103 #### [facility] [place] [address] Animal Assisted Therapist: Naren Muniz MD HEMOGLOBIN A1con 04-03-2022 HEMOGLOBIN A1c 6.0 % of total Hgb High <5.7 [facility] Comment on above: Result Comment: For someone without known diabetes, a hemoglobin A1c value between 5.7% and 6.4% is consistent with prediabetes and should be confirmed with a follow-up test. For someone with known diabetes, a value <7% indicates that their diabetes is well controlled. A1c targets should be individualized based on duration of diabetes, age, comorbid conditions, and other considerations. This assay result is consistent with an increased risk of diabetes. Currently, no consensus exists regarding use of hemoglobin A1c for diagnosis of diabetes for children. Performed By: #### 4 96, [id number] #### [facility] [address], [address] [place] [phone] Animal Assisted Therapist: Naren Muniz MD CULTURE, URINE, ROUTINEon CULTURE, URINE, ROUTINE SEE NOTE Abnormal [facility] Comment on above: Result Comment: CULTURE, URINE, ROUTINE Micro Number: [id number] Test Status: Final Specimen Source: Urine Specimen Quality: Adequate Result: Greater than 100,000 CFU/mL of Escherichia coli COMMENT: Additional non-predominating organism(s) isolated. These organisms, commonly found on external and internal genitalia, are considered colonizers. No further testing performed. E.coli INT CLARIBEL AMOX/CLAVULANATE S 4 AMPICILLIN R >=32 AMP/SULBACTAM I 16 CEFAZOLIN NR <=4 2 CEFEPIME S <=1 CEFTRIAXONE S <=1 CIPROFLOXACIN S <=0.25 ERTAPENEM S <=0.5 GENTAMICIN R >=16 IMIPENEM S <=0.25 LEVOFLOXACIN S 1 NITROFURANTOIN I 64 PIP/TAZOBACTAM S <=4 TOBRAMYCIN I 8 TRIMETHOPRIM/SULFA R >=320 S=Susceptible I=Intermediate R=Resistant * = Not Tested NR = Not Reported NN = See Therapy Comments THERAPY COMMENTS Note 1: For infections other than uncomplicated UTI caused by E. coli, K. pneumoniae or P. mirabilis: Cefazolin is resistant if CLARIBEL > or = 8 mcg/mL. (Distinguishing susceptible versus intermediate for isolates with CLARIBEL < or = 4 mcg/mL requires additional testing.) Note 2: For uncomplicated UTI caused by E. coli, K. pneumoniae or P. mirabilis: Cefazolin is susceptible if CLARIBEL <32 mcg/mL and predicts susceptible to the oral agents cefaclor, cefdinir, cefpodoxime, cefprozil, cefuroxime, cephalexin and loracarbef. Performed By: #### 3 95 #### [facility] [address], [address] [place] [address] Animal Assisted Therapist: Naren Muniz MD ALBUMIN, RANDOM URINE W/CREA TININEon 09-23-2021 ALBUMIN, URINE 1.0 mg/dL Normal See Note: [facility] Comment on above: Result Comment: Refe rence Range: Reference Range Not established Performed By: #### 6 517, 98220, 7600 #### [facility] [place] [address] Animal Assisted Therapist: Naren Muniz MD ALBUMIN/CREATININE RATIO, RANDOM URINE 45 mcg/mg creat High <30 [facility] Comment on above: Result Comment: The ADA defines abnormalities in albumin excretion as follows: Albuminuria Category Result (mcg/mg creatinine) Normal to Mildly increased <30 Moderately increased 30-299 Severely increased > OR = 300 The ADA recommends that at least two of three specimens collected within a 3-6 month period be abnormal before considering a patient to be within a diagnostic category. Performed By: #### 6 517, 22788, 7600 #### [facility] [place] [address] Animal Assisted Therapist: Naren Muniz MD Creatinine (U) [Mass/Vol] 22 mg/dL Normal 20-275 [facility] Comment on above: Performed By: #### 6 517, 58276, 7600 #### [facility] [place] [address] Animal Assisted Therapist: Naren Muniz MD [facility] 09-23-2021 Albumin [Mass/Vol] 4.1 g/dL Normal 3.6-5.1 [facility] Comment on above: Performed By: #### 6 517, 95531, 7600 #### [facility] [place] [address] Animal Assisted Therapist: Naren Muniz MD Albumin/Globulin [Mass ratio] 1.8 {ratio} Normal 1.0-2.5 [facility] Comment on above: Performed By: #### 6 517, 52980, 7600 #### [facility] [place] [address] Animal Assisted Therapist: Naren Muniz MD ALP [Catalytic activity/Vol] 51 U/L Normal 37-153 [facility] Comment on above: Performed By: #### 6 517, 12739, 0 #### [facility] of [address], [address] [place] [address] Animal Assisted Therapist: Naren Muniz MD ALT [Catalytic activity/Vol] 20 U/L Normal 6-29 [facility] Comment on above: Performed By: #### 6 517, 61625, 7600 #### [facility] of [address], [address] [place] [address] Animal Assisted Therapist: Naren Muniz MD AST [Catalytic activity/Vol] 26 U/L Normal 10-35 [facility] Comment on above: Performed By: #### 6 517, 26441, 7600 #### [facility] of [address], [address] [place] [address] Animal Assisted Therapist: Naren Muniz MD Bilirubin [Mass/Vol] 0.6 mg/dL Normal 0.2-1.2 [facility] Comment on above: Performed By: #### 6 517, 90857, 0 #### [facility] of [address], [address] [place] [address] Animal Assisted Therapist: Naren Muniz MD BUN/CREATININE RATIO NOT APPLICABLE Normal 6- [facility] Comment on above: Performed By: #### 6 517, 98545, 7600 #### [facility] of [place] [address] Animal Assisted Therapist: Naren Muniz MD Calcium [Mass/Vol] 8.8 mg/dL Normal 8.6-10.4 [facility] Comment on above: Performed By: #### 6 517, 40609, 7600 #### [facility] of [address], [address] [place] [address] Animal Assisted Therapist: Naren Muniz MD Chloride [Moles/Vol] 104 mmol/L Normal 98-110 [facility] Comment on above: Performed By: #### 6 517, 46607, 7600 #### [facility] of [address], [address] [place] [address] Animal Assisted Therapist: Naren Muniz MD CO2 [Moles/Vol] 34 mmol/L High 20-32 [facility] Comment on above: Performed By: #### 6 517, 85683, 7600 #### [facility] [place] [address] Animal Assisted Therapist: Naren Muniz MD Creatinine [Mass/Vol] 0.64 mg/dL Normal 0.60-0.93 [facility] Comment on above: Result Comment: For patients >49 years of age, the reference limit for Creatinine is approximately 13% higher for people identified as -Marshallese. Performed By: #### 6 517, 65072, 7600 #### [facility] [place] [address] Animal Assisted Therapist: Naren Muniz MD eGFR NON-AFR. TUNISIAN 89 mL/min/1.73m2 Normal > OR = 60 [facility] Comment on above: Performed By: #### 6 517, 09562, 0 #### [facility] [place] [address] Animal Assisted Therapist: Naren Muniz MD GFR/1.73 sq M.predicted among blacks MDRD (S/P/Bld) [Vol rate/Area] 103 mL/min/{1.73_m2} Normal > OR = 60 [facility] Comment on above: Performed By: #### 6 517, 63284, 7600 #### [facility] [place] [address] Animal Assisted Therapist: Naren Muniz MD Globulin (S) [Mass/Vol] 2.3 g/dL Normal 1.9-3.7 [facility] Comment on above: Performed By: #### 6 517, 57064, 7600 #### [facility] [place] [address] Animal Assisted Therapist: Naren Muniz MD Glucose [Mass/Vol] 112 mg/dL High 65-99 [facility] Comment on above: Result Comment: Fasting reference interval For someone without known diabetes, a glucose value between 100 and 125 mg/dL is consistent with prediabetes and should be confirmed with a follow-up test. Performed By: #### 6 517, 46894, 7600 #### [facility] of [place] [address] Animal Assisted Therapist: Naren Muniz MD Potassium [Moles/Vol] 4.1 mmol/L Normal 3.5-5.3 [facility] Comment on above: Performed By: #### 6 517, 04218, 7600 #### [facility] of [place] [address] Animal Assisted Therapist: Naren Muniz MD Protein [Mass/Vol] 6.4 g/dL Normal 6.1-8.1 [facility] Comment on above: Performed By: #### 6 517, 36957, 7600 #### [facility] of [place] [address] Animal Assisted Therapist: Naren Muniz MD Sodium [Moles/Vol] 143 mmol/L Normal 135-146 [facility] Comment on above: Performed By: #### 6 517, 51635, 7600 #### [facility] of [place] [address] Animal Assisted Therapist: Naren Muniz MD Urea nitrogen [Mass/Vol] 18 mg/dL Normal 7-25 [facility] Comment on above: Performed By: #### 6 517, 47669, 7600 #### [facility] of [place] [address] Animal Assisted Therapist: Naren Muniz MD LIPID PANEL, [facility] 09-10 Cholesterol [Mass/Vol] 97 mg/dL Normal <200 [facility] Comment on above: Order Comment: FASTI NG:YES FASTING: YES Performed By: #### 6 517, 19557, 7600 #### [facility] of [place] [address] Animal Assisted Therapist: Naren Muniz MD Cholesterol in HDL [Mass/Vol] 45 mg/dL Low > OR = 50 [facility] Comment on above: Order Comment: FASTI NG:YES FASTING: YES Performed By: #### 6 517, 67024, 7600 #### [facility] [address], [address] [place] [address] Animal Assisted Therapist: Naren Muniz MD Cholesterol in LDL [Mass/Vol] 36 mg/dL Normal [facility] Comment on above: Order Comment: FASTI NG:YES FASTING: YES Result Comment: Refe rence range: <100 Desirable range <100 mg/dL for primary prevention; <70 mg/dL for patients with CHD or diabetic patients with > or = 2 CHD risk factors. LDL-C is now calculated using the Susan calculation, which is a validated novel method providing better accuracy than the Friedewald equation in the estimation of LDL-C. Xavier SS et al. STEPHAN. 2013;310(19): 5497-4671 (http://education.[employer].SimScale/faq/ZGK174) Performed By: #### 6 517, 11589, 4380 #### [facility] [place] [address] Animal Assisted Therapist: Naren Muniz MD Cholesterol.total/C holesterol in HDL [Mass ratio] 2.2 {ratio} Normal <5.0 [facility] Comment on above: Order Comment: FASTI NG:YES FASTING: YES Performed By: #### 6 517, 17623, 9210 #### [facility] [place] [address] Animal Assisted Therapist: Naren Muniz MD NON HDL CHOLESTEROL 52 mg/dL (calc) Normal <130 [facility] Comment on above: Order Comment: FASTI NG:YES FASTING: YES Result Comment: For patients with diabetes plus 1 major ASCVD risk factor, treating to a non-HDL-C goal of <100 mg/dL (LDL-C of <70 mg/dL) is considered a therapeutic option. Performed By: #### 6 517, 88011, 7970 #### [facility] [address], [address] [place] [address] Animal Assisted Therapist: Naren Muniz MD Triglyceride [Mass/Vol] 82 mg/dL Normal <150 [facility] Comment on above: Order Comment: FASTI NG:YES FASTING: YES Performed By: #### 6 064, 80301, 5950 #### [facility] [address] [facility], [address] [place] [address] Animal Assisted Therapist: Naren Muniz MD Vital Signs Date Time Vital Sign Value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 MVR 31MM MOSAIC /TRICUSPID VALVE REPAIR 26MM CG FUTURE BAND/ BI-ATRIAL MAZE/ LEFT ATRIAL APPENDAGE RESECTION /HALLE; Surgeon: Jay Tello MD; Location: [facility]; Service: Cardiothoracic; Laterality: N/A; MVR 31MM MOSAIC /TRICUSPID VALVE REPAIR 26MM CG FUTURE BAND/ BI-ATRIAL MAZE/ LEFT ATRIAL APPENDAGE RESECTION /HALLE N/A 07/14/2016 Performed by Jay Tello MD at [facility] TONSILLECTOMY Transcutaneous aortic valve replacement/Transfemoral/Edward s N/A 09/16/2023 Performed by Farrah Land MD at [facility] CARDIAC CATH LABS TUBAL LIGATION Family History Problem Relation Age of Onset Hypertension Mother Hyperlipidemia Mother Diabetes Mother COPD Mother Alzheimer's disease Mother Heart disease Mother Other Father Prisoner of War Heart disease Sister Social History Socioeconomic History Marital status: Spouse name: Not on file Number of children: Not on file Years of education: Not on file Highest education level: Not on file Occupational History Not on file Tobacco Use Smoking status: Never Smokeless tobacco: Never Vaping Use Vaping status: Never Used Substance and Sexual Activity Alcohol use: Not Currently Comment: occasional Drug use: No Sexual activity: Defer Other Topics Concern Caffeine Use No Comment: decaf Social History Narrative Not on file Social Drivers of Health Financial Resource Strain: Low Risk (02/05/2023) Overall Financial Resource Strain (CARDIA) Difficulty of Paying Living Expenses: Not hard at all Food Insecurity: No Food Insecurity (10/19/2024) Hunger Screening Food Insecurity - Worry: Never True Food Insecurity - Inability: Never True Transportation Needs: No Transportation Needs (02/05/2023) PRAPARE - Transportation Lack of Transportation (Medical): No Lack of Transportation (Non-Medical): No Physical Activity: Insufficiently Active (02/16/2024) Exercise Vital Sign Days of Exercise per Week: 7 days Minutes of Exercise per Session: 20 min Stress: No Stress Concern Present (02/05/2023) [employer] [place] [employer] - Occupational Stress Questionnaire Feeling of Stress : Not at all Social Connections: Socially Integrated (02/05/2023) Social Connection and Isolation Panel [NHANES] Frequency of Communication with Friends and Family: More than three times a week Frequency of Social Gatherings with Friends and Family: Twice a week Attends [employer] Services: More than 4 times per year Active Member of Clubs or Organizations: Yes Attends Club or Organization Meetings: More than 4 times per year Marital Status: Interpersonal Safety: Not At Risk (02/05/2023) Humiliation, Afraid, Rape, and Kick questionnaire Fear of Current or Ex-Partner: No Emotionally Abused: No Physically Abused: No Sexually Abused: No Housing Instability: Low Risk (02/05/2023) Housing Instability Housing Instability: No Review of Systems Review of Systems Constitutional: Negative. HENT: Negative. Eyes: Negative. Cardiovascular: Negative. Respiratory: Negative. Endocrine: Negative. Hematologic/Lymphatic: Negative. Skin: Negative. Musculoskeletal: Negative. Gastrointestinal: Negative. Genitourinary: Negative. Neurological: Negative. Psychiatric/Behavioral: Positive for depression. The patient is nervous/anxious. Allergic/Immunologic: Negative. Vascular: Negative. CARDIOVASCULAR: Please review HPI. Physical Examination General appearance: Alert, oriented and cooperative. In no acute distress. Skin: Warm and dry to touch. Head: Normocephalic, without obvious abnormality, atraumatic. Ears, Nose, Mouth, Throat: Throat clear without erythema or exudate. Dentition intact. Eyes: Conjunctivae unremarkable, EOM intact. Neck: No JVD, No carotid bruit. Neck supple, trachea midline. Respiratory: Clear to auscultation bilaterally, no use of accessory muscles. Cardiovascular: RRR with normal S1 and S2 with no murmurs. Gastrointestinal: Soft, non-tender. Bowel sounds normal. Musculoskeletal: No peripheral edema. Neurologic: Oriented to time, person and place, affect appropriate. No focal/major motor defects noted. Psychiatric: Appropriate mood, memory and judgement. VITAL SIGNS: BP 142/68 Pulse 62 Ht 149.9 cm (4' 11 ) Wt 73.9 kg (163 lb) LMP (LMP Unknown) BMI 32.92 kg/m No orders of the defined types were placed in this encounter. There are no discontinued medications. [id number] Score: 4 4.8% Stroke risk per year, 6.7% risk of stroke/TIA/systemic embolism IMPRESSIONS/PLAN 1. 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 Severe TR status post repair with a 26 annuloplasty band Status post biatrial Maze with a appendage ligation in 2016 Persistent atrial fibrillation /atypical atrial flutter status post cardioversion on 08/01 maintained on sotalol with AFib recurrence in November 2023 and converted spontaneously at the time Sick sinus syndrome status post POLICY INTERN P [place] implanted in 2022 Device interrogation today showed underlying sinus rhythm with AFib burden of 22%, atrially paced 68%, RV pacing 4.1%, device functioning properly battery life about 16 months -- blood pressure above goal today however controlled at home -- patient seems to be asymptomatic during breakthrough AFib episodes, she is considering ablation but still want to wait for the time being she already met with Dr. Lu -- she is compliant with Eliquis without any bleeding issues Overall stable from cardiovascular standpoint, Continue current medical regiment TODAYS ORDERS Orders Placed This Encounter Procedures Device Interrogation FOLLOW UP No follow-ups on file. PCP: JOSE Rutherford Referring Physician: JOSE Rutherford [address] [place] [address] documented in this encounter [facility] 10-19-2024 History of Presen t illness Narrative I agree with the findings in the scanned document. documented in this encounter [facility] 10-18-2024 Miscellaneous Notes Formattin g of this note might be different from the original. Called patient to remind them to bring their most current copy of their medication list with them to their appt. Patient verbalizes understanding. documented in this encounter [facility] 10-18-2024 Telephone encount er Note Called patient to remind them to bring their most current copy of their medication list with them to their appt. Patient verbalizes understanding. [facility] 10-18-2024 Miscellaneous Notes Formattin g of this note might be different from the original. Called patient to remind them to bring their most current copy of their medication list with them to their appt. Patient verbalizes understanding. documented in this encounter [facility] 10-18-2024 Telephone encount er Note Called patient to remind them to bring their most current copy of their medication list with them to their appt. Patient verbalizes understanding. [facility] 07-28-2024 Miscellaneous Notes Formattin g of this note might be different from the original. Images from the original note were not included. García 01/07/24 Mg 07/22/23 Bmp 07/13/24 - abn Pt needs labs, mag order pended, letter sent. documented in this encounter [facility] 07-28-2024 Telephone encount er Note Images from the original note were not included. García 01/07/24 Mg 07/22/23 Bmp 07/13/24 - abn Pt needs labs, mag order pended, letter sent. [facility] Evaluation note Diagnosis Paroxysmal atrial fibrillation (CMS-HCC)- Primary Atrial fibrillation Sick sinus syndrome (CMS-HCC) Sinoatrial node dysfunction EDGAR (obstructive sleep apnea) Obstructive sleep apnea (adult) (pediatric) Presence of cardiac pacemaker-[facility] Cardiac pacemaker in situ Paroxysmal atrial fibrillation (CMS-HCC)- Primary Atrial fibrillation Encounter for monitoring sotalol therapy EDGAR (obstructive sleep apnea) Obstructive sleep apnea (adult) (pediatric) S/p TAVR (transcatheter aortic valve replacement), bioprosthetic Atypical atrial flutter (CMS-HCC) Primary hypertension- Primary Unspecified essential hypertension Chronic combined systolic and diastolic heart failure (CMS-HCC) Chronic combined systolic and diastolic heart failure [facility] note* Diagnosis Paroxysmal atrial fibrillation (CMS-HCC)- Primary Atrial fibrillation Sick sinus syndrome (CMS-HCC) Sinoatrial node dysfunction EDGAR (obstructive sleep apnea) Obstructive sleep apnea (adult) (pediatric) Presence of cardiac pacemaker-SJM Cardiac pacemaker in situ Paroxysmal atrial fibrillation (CMS-HCC)- Primary Atrial fibrillation Encounter for monitoring sotalol therapy EDGAR (obstructive sleep apnea) Obstructive sleep apnea (adult) (pediatric) S/p TAVR (transcatheter aortic valve replacement), bioprosthetic Atypical atrial flutter (CMS-HCC) S/p TAVR (transcatheter aortic valve replacement), bioprosthetic- Primary documented in this encounter [facility]* Diagnosis Paroxysmal atrial fibrillation (CMS-HCC)- Primary Atrial fibrillation Sick sinus syndrome (CMS-HCC) Sinoatrial node dysfunction EDGAR (obstructive sleep apnea) Obstructive sleep apnea (adult) (pediatric) Presence of cardiac pacemaker-SJM Cardiac pacemaker in situ Paroxysmal atrial fibrillation (CMS-HCC)- Primary Atrial fibrillation Encounter for monitoring sotalol therapy EDGAR (obstructive sleep apnea) Obstructive sleep apnea (adult) (pediatric) S/p TAVR (transcatheter aortic valve replacement), bioprosthetic Atypical atrial flutter (CMS-HCC) Presence of cardiac pacemaker- Primary Cardiac pacemaker in situ Primary hypertension Unspecified essential hypertension Chronic combined systolic and diastolic heart failure (CMS-HCC) Chronic combined systolic and diastolic heart failure documented in this encounter [facility]* Diagnosis Paroxysmal atrial fibrillation (CMS-HCC)- Primary Atrial fibrillation Sick sinus syndrome (CMS-HCC) Sinoatrial node dysfunction EDGAR (obstructive sleep apnea) Obstructive sleep apnea (adult) (pediatric) Presence of cardiac pacemaker-SJM Cardiac pacemaker in situ Paroxysmal atrial fibrillation (CMS-HCC)- Primary Atrial fibrillation Encounter for monitoring sotalol therapy EDGAR (obstructive sleep apnea) Obstructive sleep apnea (adult) (pediatric) S/p TAVR (transcatheter aortic valve replacement), bioprosthetic Atypical atrial flutter (CMS-HCC) Presence of cardiac pacemaker-SJM- Primary Cardiac pacemaker in situ documented in this encounter [facility]* Diagnosis Paroxysmal atrial fibrillation (CMS-HCC)- Primary Atrial fibrillation Sick sinus syndrome (CMS-HCC) Sinoatrial node dysfunction EDGAR (obstructive sleep apnea) Obstructive sleep apnea (adult) (pediatric) Presence of cardiac pacemaker-SJM Cardiac pacemaker in situ Paroxysmal atrial fibrillation (CMS-HCC)- Primary Atrial fibrillation Encounter for monitoring sotalol therapy EDGAR (obstructive sleep apnea) Obstructive sleep apnea (adult) (pediatric) S/p TAVR (transcatheter aortic valve replacement), bioprosthetic Atypical atrial flutter (CMS-HCC) Primary hypertension Unspecified essential hypertension Chronic combined systolic and diastolic heart failure (CMS-HCC) Chronic combined systolic and diastolic heart failure [facility] Diagnosis Paroxysmal atrial fibrillation (CMS-HCC)- Primary Atrial fibrillation Sick sinus syndrome (CMS-HCC) Sinoatrial node dysfunction EDGAR (obstructive sleep apnea) Obstructive sleep apnea (adult) (pediatric) Presence of cardiac pacemaker-SJM Cardiac pacemaker in situ Paroxysmal atrial fibrillation (CMS-HCC)- Primary Atrial fibrillation Encounter for monitoring sotalol therapy EDGAR (obstructive sleep apnea) Obstructive sleep apnea (adult) (pediatric) S/p TAVR (transcatheter aortic valve replacement), bioprosthetic Atypical atrial flutter (CMS-HCC) Depressive disorder Depressive disorder, not elsewhere classified [facility] Diagnosis Paroxysmal atrial fibrillation (CMS-HCC)- Primary Atrial fibrillation Sick sinus syndrome (CMS-HCC) Sinoatrial node dysfunction EDGAR (obstructive sleep apnea) Obstructive sleep apnea (adult) (pediatric) Presence of cardiac pacemaker-SJM Cardiac pacemaker in situ Paroxysmal atrial fibrillation (CMS-HCC)- Primary Atrial fibrillation Encounter for monitoring sotalol therapy EDGAR (obstructive sleep apnea) Obstructive sleep apnea (adult) (pediatric) S/p TAVR (transcatheter aortic valve replacement), bioprosthetic Atypical atrial flutter (CMS-HCC) Paroxysmal atrial fibrillation (CMS-HCC)- Primary Atrial fibrillation [facility] filedocumented in [facility] filedocument[facility] filedocumented in this encounter [facility] filedocumented in [facility] filedocumented in [facility] filedocumented in [facility] encounter [facility] Summary Purpose Family History No Family History Records FoundNo Family History Records FoundNo Family History Records FoundNo Family History Records FoundNo Family History Records FoundNo Family History Records Found Advance Directives Date Activated Date Inactivated Comments 07/20/2023 12:07 PM 07/22/2023 6:53 PM Date Activated Date Inactivated Comments 07/10/2016 9:29 AM 07/19/2016 8:12 PM Date Activated Date Inactivated Comments 07/20/2023 12:07 PM 07/22/2023 6:53 PM Date Activated Date Inactivated Comments 07/10/2016 9:29 AM 07/19/2016 8:12 PM Additional Source Comments INFORMATION SOURCE (unrecogn ized section and content) DATE CREATED AUTHOR 04/05/2022 [facility] DATE CREATED AUTHOR AUTHOR'S ORGANIZ ATION 11/02/2022 [facility] DATE CREATED AUTHOR AUTHOR'S ORGANIZ ATION 02/15/2024 [facility] DATE CREATED AUTHOR AUTHOR'S ORGANIZ ATION 06/14/2024 [facility] DATE CREATED AUTHOR AUTHOR'S ORGANIZ ATION 06/15/2024 [facility] DATE CREATED AUTHOR AUTHOR'S ORGANIZ ATION 10/21/2024 [facility] Reason for Visit (unrecogniz ed section and content) Reason Comments Med Refill Reason Comments Follow-up ov/pm 13 mo no testi ng dave w pt Reason Comments Device Check Reason Onset Date Comments Med Refill 10/24/2024 Care Teams (unrecognized sec tion and content) Sports Statistician Relationship Specialty Start Date End Date David Hayes APRN-PROFESSOR OF THEOLOGY [address] [place] [address] PCP - General Family Medicine 01/19/24 Sports Statistician Relationship Specialty Start Date End Date David Hayes APRN-PROFESSOR OF THEOLOGY [address] [place] [address] PCP - General Family Medicine 01/19/24 Sports Statistician Relationship Specialty Start Date End Date David Hayes, RADHA-PROFESSOR OF THEOLOGY [address] [place] [address] PCP - [facility] Medicine 01/19/24 Sports Statistician Relationship Specialty Start Date End Date [facility] [address] [place] [address] PCP - [facility] 01/19/24 Sports Statistician Relationship Specialty Start Date End Date Apryl Hayese [facility] [address] [place], [place] [address] PCP - [facility] Medicine 01/19/24 FOR RECORDS PERTAINING TO PATIENTS WHO ARE OR HAVE BEEN ENROLLED IN A CHEMICAL DEPENDENCY/SUBSTANCEABUSE PROGRAM, SOME INFORMATION MAY BE OMITTED. This clinical summary was aggregated from multiple sources. Caution should be exercised in using it in the provision of clinical care. This summary normalizes information from multiple sources, and as a consequence, information in this document may materially change the coding, format and clinical context of patient data. In addition, data may be omitted in some cases. CLINICAL DECISIONS SHOULD BE BASED ON THE PRIMARY CLINICAL RECORDS. [facility] [email or web address] [facility]. provides no warranty or guarantee of the accuracy or completeness of information in this document.
== END 2024-10-27 11:29 | disposition home or self-care (01) ==
LOC: MAMMO 11:28
PROVIDERS: PCP Nurse Practitioner; Visit Provider Nurse Practitioner
DX: Z12.31 Encounter for screening mammogram for malignant neoplasm of breast (principal)
CPT/HCPCS: 77063; 77067